=== PATIENT | female | born 1955 | race Caucasian/White ===

== ENCOUNTER 2016-05-07 17:58 | Emergency (ER) | payer OTHER ==
[2016-05-07] MEDS ORDERED: KETOROLAC 30 MG/ML VIAL (J1885) As Ordered ONE ×2 (18:45→19:15)
[2016-05-07] MEDS ORDERED: ONDANSETRON 4MG/2ML VIAL (J2405) As Ordered ONE ×2 (18:45→19:15)
[2016-05-07] MEDS ORDERED: LORazepam 2 MG/ML VIAL (J2060) As Ordered ONE (19:19)
[2016-05-07 19:20] LABS: BASO % 0.4 % (0.0-1.0); EOS # 0.5 K/mm3 (0.0-0.50); EOS % 5.5 % (0.0-3.0); LARGE UNSTAINED CELL # 0.1 K/mm3 (0.0-0.4); LARGE UNSTAINED CELL % 1.4 % (0.0-4.0); LYMPH # 2.4 K/mm3 (1.5-4.5); LYMPH % 25.3 % (24.0-44.0); MEAN CORPUSCULAR HEMOGLOBIN 30.2 pg (27.0-33.0); MEAN CORPUSCULAR HGB CONC 33.3 g/dl (32.0-36.5); MEAN CORPUSCULAR VOLUME 90.8 fl (80.0-96.0); MONO # 0.5 K/mm3 (0.0-0.8); NEUTROPHILS % 62.4 % (36.0-66.0); PLATELET COUNT, AUTOMATED 304 k/mm3 (150-450); WHITE BLOOD COUNT 9.6 K/mm3 (4.0-10.0)
[2016-05-07 19:56] LABS: ALBUMIN 3.9 GM/DL (3.2-5.2); ALKALINE PHOSPHATASE 115 U/L (45-117); ALT/SGPT 27 U/L (12-78); ANION GAP 11 MEQ/L (8-16); AST/SGOT 17 U/L (15-37); BILIRUBIN,DIRECT < 0.1 MG/DL (0.0-0.2); BILIRUBIN,TOTAL 0.3 MG/DL (0.2-1.0); BLOOD UREA NITROGEN 10 MG/DL (7-18); CALCIUM LEVEL 9.3 MG/DL (8.8-10.2); CARBON DIOXIDE LEVEL 24 MEQ/L (21-32); CHLORIDE LEVEL 105 MEQ/L (98-107); CREATININE FOR GFR 1.07 MG/DL (0.55-1.02); GLOMERULAR FILTRATION RATE 55.7 (>45); GLUCOSE, FASTING 116 MG/DL (80-110); POTASSIUM SERUM 4.3 MEQ/L (3.5-5.1); SODIUM LEVEL 140 MEQ/L (136-145); T UPTAKE 28 % (30-39); THYROXINE (T4) 5.7 UG/DL (4.5-12.0); TOTAL PROTEIN 7.8 GM/DL (6.4-8.2)
[2016-05-07] MEDS ORDERED: ISOVUE-370 76% 100ML VIAL (Q9967) As Ordered ONE (19:59)
--- NOTE | 2016-05-07 20:50 | REPUSA ---
CLINICAL HISTORY: Abdominal pain. TECHNIQUE: Multiple axial, sagittal and coronal CT images were obtained through the abdomen and pelvi s after administration of intravenous contrast material. COMMENTS: The liver is of uniform attenuation without mass or defect. There is no intra or extrahepatic biliary ductal dilatation. The spleen is normal. The gallbladder is within normal limits. The pancreas is of normal contour and attenuation characteristics. There is no evidence of adrenal mass. Both kidneys demonstrate prompt and equal nephrograms. The kidneys are normal in size, shape and conf iguration. There is no evidence of renal or ureteral mass. No renal or ureteral calculi are identifie d. There is no hydroureter or hydronephrosis. Small fat-containing umbilical hernia is seen. No evidence for appendicitis. Sigmoid diverticula are noted without evidence of diverticulitis. The re is no bowel wall thickening. No evidence for small or large bowel obstruction. There is no evidenc e of abdominal ascites or lymphadenopathy. Although bladder is not fully distended, there is apparent bladder wall thickening suggests cystitis . There is no evidence of intrinsic or extrinsic bladder mass. There is no pelvic ascites or lymphad enopathy. Images of the lung bases show no evidence of pleural or parenchymal mass. There are no pleural effusi ons. The bony structures are free of lytic or blastic lesions. Multilevel degenerative changes are seen in volving the thoracolumbar spine. Scattered calcifications are seen involving the aorta and major bran ches compatible with atherosclerosis. IMPRESSION: No evidence of acute abdominal pathology. Although bladder is not fully distended, there is apparent bladder wall thickening suggests cystitis . Small fat-containing umbilical hernia is seen. Sigmoid diverticula are noted without evidence of diverticulitis. Thank you for your kind referral of this patient.
--- NOTE | 2016-05-07 21:38 | EDDOCDS ---
Physician Documentation [facility] Name: Daylin Rahman Age: 61 yrs Sex: Female : 1955 Arrival Date: 05/07/2016 Time: 17:58 Bed I3 / M3 Private MD: Chon Borrero Disposition: 05/07/16 21:26 Discharged to Home/Self Care. Impression: Nausea and vomiting, Gastro-esophageal reflux disease. - Condition is Stable. - Discharge Instructions: Nausea and Vomiting. - Prescriptions for Carafate 1 gram Oral Tablet - take 1 tablet by ORAL route 4 times per day take on an empty stomach, beginning on waking and last dose at bedtime; 100 tablet. Compazine 10 mg Oral Tablet - take 1 tablet by ORAL route every 8 hours As needed; 20 tablet. - Medication Reconciliation, Local Pharmacy Hours form. - Follow up: Emergency Department; When: As needed; Reason: Worsening of conditions. Follow up: Dante Perez; When: Call to arrange an appointment; Reason: Wound/Symptom Recheck, Recheck today's complaints, Worsening of conditions, Continuance of care. - Problem is chronic. - Symptoms have improved. Historical: - Allergies: air born smellsseizure; SULFA (SULFONAMIDES)coma; Tegretolblisters; Depakoteblisters; Bees; - Home Meds: 1. pantoprazole 40 mg oral TbEC 1 tab 2 times per day 2. ondansetron HCl 4 mg Oral tab daily 3. Synthroid 88 mcg Oral tab 1 tab once daily 4. gabapentin 300 mg Oral cap 1 cap 3 times per day 5. Flexeril 10 mg Oral tab as needed - PMHx: Thyroid problem; - PSHx: Breast Reduction (2015); Hysterectomy (2005); neck plate (1998); left forearm; Cesearean Section (1978); - Social history: Smoking status: Patient states was never smoker of tobacco. No barriers to communication noted, The patient speaks fluent [place]serr[place]ian, Speaks appropriately for age. - Family history: Not pertinent. - : The pt / caregiver states he / she is not on anticoagulants. Home medication list is obtained from the patient. - Exposure Risk Screening:: None identified. Vital Signs: 05/07 17:59 BP 182 / 100; Pulse 83; Resp 20 S; Temp 97.0(O); Pulse Ox 96% on R/A; Weight 90.72 kg / gr2 200 lbs (R); Height 5 ft. 7 in. (170.18 cm) (R); Pain 4/10; 19:01 BP 151 / 90; Pulse 70; Resp 18; Temp 98.5; Pulse Ox 93% ; Pain 4/10; ajs 21:35 BP 149 / 72; Pulse 68; Resp 16; Temp 98.1; Pulse Ox 94% on R/A; Pain 1/10; ld5 17:59 Body Mass Index 31.32 (90.72 kg, 170.18 cm) gr2 MDM: 18:27 NS 0.9% 1000 ml IV at bolus once ordered. cc10 18:27 Ondansetron 4 mg IVP once ordered. cc10 18:27 ketorolac 30 mg IVP once ordered. cc10 18:27 IV Saline Lock ordered. cc10 18:27 Undress patient appropriately for examination ordered. cc10 18:27 LORazepam 0.5 mg IVP once ordered. cc10 18:28 Basic Metabolic Profile Ordered. EDMS 18:28 CBC with Diff Ordered. EDMS 18:28 Lipase Ordered. EDMS 18:28 Liver Profile Ordered. EDMS 18:28 Urinalysis Ordered. EDMS 18:28 Thyroid Profile Ordered. EDMS 18:28 Urine Culture Ordered. EDMS 18:29 CT ABD & PELVIS: IV Contrast Only Ordered. EDMS 18:29 NOTHING BY MOUTH+DIET ordered. EDMS 19:49 Financial registration complete. b 20:00 [facility] Payment Agreement was scanned into [employer] and attached to record. gjb 21:28 Basic Metabolic Profile Reviewed. cc10 21:28 CBC with Diff Reviewed. cc10 21:28 Thyroid Profile Reviewed. cc10 21:28 Lipase Reviewed. cc10 21:28 Liver Profile Reviewed. cc10 21:28 Urinalysis Reviewed. cc10 21:28 CT ABD & PELVIS: IV Contrast Only Reviewed. cc10 Administered Medications: 19:14 Drug: NS 0.9% 1000 ml [sodium chloride 0.9 % intravenous solution] Route: IV; Rate: ld5 bolus; Site: left antecubital; 20:19 Follow up: IV Status: Completed infusion; IV Intake: 1000ml ld5 19:30 Drug: Ondansetron 4 mg [ondansetron HCl 2 mg/mL intravenous solution (2 mL)] Route: ld5 IVP; Site: left antecubital; 20:19 Follow up: Response: Nausea is decreased ld5 19:30 Drug: LORazepam 0.5 mg [lorazepam 2 mg/mL injection solution (0.25 mL)] Route: IVP; ld5 Site: left antecubital; 19:31 Drug: ketorolac 30 mg [ketorolac 30 mg/mL (1 mL) injection solution (1 mL)] Route: IVP; ld5 Site: left antecubital; 20:19 Follow up: Response: Pain is decreased ld5 Signatures: Dispatcher [employer] EDMassiel De JesusRN RN kr3 Edie Herring RN RN ld5 Ricardo Bullock PA-C PA-C cc10 Joellen Vizcarra The chart was reviewed and I authenticate all verbal orders and agree with the evaluation and treatment provided.Attachments: 20:00 [facility] Payment Agreement zane MTDD
--- NOTE | 2016-05-07 21:38 | EDDOCDS ---
Nurse's Notes [facility] Name: Daylin Rahman Age: 61 yrs Sex: Female : 1955 Arrival Date: 05/07/2016 Time: 17:58 Bed I3 / M3 Private MD: Chon Borrero Diagnosis: Nausea and vomiting;Gastro-esophageal reflux disease Presentation: 05/07 18:01 Presenting complaint: Patient states: stomach problems for [address] madhavi Wang and has scope planned. Reports now having problem taking meds and thus having memory problems. Reports feeling rips in right side where she had breast reduction 10 weeks ago. Adult Sepsis Screening: The patient does not have new or worsening altered mentation. Patient's respiratory rate is less than 22. Systolic blood pressure is greater than 100. Patient has a qSOFA score of 0- Negative Sepsis Screen. Suicide/Homicide risk assessment- the patient denies having any suicidal and/or homicidal ideations and does not present with any other emotional, behavioral or mental health complaints. Status: Patient is not a services tech or dependent. Transition of care: patient was not received from another setting of care. 18:01 Acuity: CONSTANTINO Level 3 kr3 18:01 Method Of Arrival: Walkin/Carried/Asstd kr3 Triage Assessment: 18:07 General: Appears comfortable, distressed, Behavior is appropriate for age, cooperative. kr3 Pain: Location: right upper abdomen Pain currently is 3 out of 10 on a pain scale. At worst was 10 out of 10 on a pain scale. Aggravated by lifting or pulling or pushing. Pt Declines HIV testing. Neurological: No deficits noted. Respiratory: Respiratory effort is even, unlabored. GI: Reports afraid to eat or drink. Derm: Skin is normal. Historical: - Allergies: air born smellsseizure; SULFA (SULFONAMIDES)coma; Tegretolblisters; Depakoteblisters; Bees; - Home Meds: 1. pantoprazole 40 mg oral TbEC 1 tab 2 times per day 2. ondansetron HCl 4 mg Oral tab daily 3. Synthroid 88 mcg Oral tab 1 tab once daily 4. gabapentin 300 mg Oral cap 1 cap 3 times per day 5. Flexeril 10 mg Oral tab as needed - PMHx: Thyroid problem; - PSHx: Breast Reduction (2015); Hysterectomy (2006); neck plate (1998); left forearm; Cesearean Section (1978); - Social history: Smoking status: Patient states was never smoker of tobacco. No barriers to communication noted, The patient speaks fluent Peruvian, Speaks appropriately for age. - Family history: Not pertinent. - : The pt / caregiver states he / she is not on anticoagulants. Home medication list is obtained from the patient. - Exposure Risk Screening:: None identified. Screenin:35 Screening information is obtained from the patient. Fall risk: No risks identified. ld5 Assistance ADL's: requires no assistance with activities of daily living. Abuse/DV Screen: The patient / caregiver reports he/she is: not in a situation that causes fear, pain or injury. Nutritional screening: No deficits noted. Advance Directives: Currently, there is no health care proxy. home support is adequate. Assessment: 19:17 General: Appears in no apparent distress, Behavior is cooperative, tearful. Pain: ld5 Location: abdomen Pain currently is 4 out of 10 on a pain scale. At worst was 8 out of 10 on a pain scale. Quality of pain is described as sharp, Is intermittent Aggravated by repositioning, weight bearing. Neurological: Level of Consciousness is awake, alert, obeys commands. Respiratory: Airway is patent Respiratory effort is even, unlabored, Breath sounds are clear bilaterally. GI: Abdomen is obese, Bowel sounds present X 4 quads. Abd is soft X 4 quads Reports nausea, vomiting, intolerance of food, intolerance of fluids. : Denies burning with urination, pain with urination. Derm: surgical scarring and several scabbed areas under bilateral breasts, redness and warmth under breasts. 20:19 General: Pt returned from CT. Tolerated well. Reports pain is "90% better". [place] ld5 provided. Will continue to monitor. 21:16 General: Pt reports minimal pain and nausea. Resting comfortably in bed. Talking to ld5 granddaughter. Will continue to monitor. 21:35 General: Appears in no apparent distress, Behavior is cooperative, pleasant. Pain: Pain ld5 currently is 1 out of 10 on a pain scale. Neurological: Level of Consciousness is awake, obeys commands. Respiratory: Airway is patent Respiratory effort is even, unlabored. Vital Signs: 17:59 BP 182 / 100; Pulse 83; Resp 20 S; Temp 97.0(O); Pulse Ox 96% on R/A; Weight 90.72 kg gr2 (R); Height 5 ft. 7 in. (170.18 cm) (R); Pain 4/10; 19:01 BP 151 / 90; Pulse 70; Resp 18; Temp 98.5; Pulse Ox 93% ; Pain 4/10; ajs 21:35 BP 149 / 72; Pulse 68; Resp 16; Temp 98.1; Pulse Ox 94% on R/A; Pain 1/10; ld5 17:59 Body Mass Index 31.32 (90.72 kg, 170.18 cm) gr2 Vitals: 17:59 Log In Time: May 07, 2016 at 17:59. gr2 ED Course: 17:59 Patient visited by Carolina Gibbs. gr2 17:59 Chon Borrero MD is Private Physician. gr2 17:59 Patient moved to Waiting gr2 18:00 Patient visited by Carolina Gibbs. gr2 18:00 Patient moved to Pre RCE gr2 18:03 Triage Initiated kr3 18:09 Patient moved to Triage 1 kr3 18:19 Ricardo Bullock PA-C is PHCP. cc10 18:19 Lory Montemayor MD is Attending Physician. cc10 18:19 Patient visited by Ricardo Bullock PA-C. cc10 18:19 Patient visited by Ricardo Bullock PA-C. cc10 18:28 Isabel Palafox, GENIE is Primary Nurse. jam1 18:28 Patient moved to I3 / M3 jam1 19:01 Patient visited by Joelle Noel. ajs 19:13 Thyroid Profile Sent. ld5 19:13 Basic Metabolic Profile Sent. ld5 19:13 CBC with Diff Sent. ld5 19:13 Lipase Sent. ld5 19:13 Liver Profile Sent. ld5 19:13 Urinalysis Sent. ld5 19:13 Urine Culture Sent. ld5 19:47 The patient / caregiver is instructed regarding the plan of care and ED course. Patient ld5 has correct armband on for positive identification. Placed in gown. Bed in low position. Call light in reach. 19:47 Inserted saline lock: 20 gauge in left antecubital area and blood collected. The ld5 patient tolerated the procedure well. Labs drawn. (by ED staff). Sent per order to lab. Urine collected. Clean catch specimen. Urine specimen sent to lab. 19:48 Patient visited by Edie Herring RN. ld5 20:00 [facility] Payment Agreement was scanned into [place] and attached to record. gjb 20:22 Patient visited by Edie Herring RN. ld5 21:04 CT ABD & PELVIS: IV Contrast Only Returned. EDMS 21:26 Dante Perez is Referral Physician. cc10 21:35 Discontinued lock intact, bleeding controlled, pressure dressing applied, No ld5 redness/swelling at site. No procedures done that require assistance. 21:37 Patient visited by Edie Herring RN. ld5 Administered Medications: 19:14 Drug: NS 0.9% 1000 ml [sodium chloride 0.9 % intravenous solution] Route: IV; Rate: ld5 bolus; Site: left antecubital; 20:19 Follow up: IV Status: Completed infusion; IV Intake: 1000ml ld5 19:30 Drug: Ondansetron 4 mg [ondansetron HCl 2 mg/mL intravenous solution (2 mL)] Route: ld5 IVP; Site: left antecubital; 20:19 Follow up: Response: Nausea is decreased ld5 19:30 Drug: LORazepam 0.5 mg [lorazepam 2 mg/mL injection solution (0.25 mL)] Route: IVP; ld5 Site: left antecubital; 19:31 Drug: ketorolac 30 mg [ketorolac 30 mg/mL (1 mL) injection solution (1 mL)] Route: IVP; ld5 Site: left antecubital; 20:19 Follow up: Response: Pain is decreased ld5 Intake: 20:19 IV: 1000.00ml; Total: 1000.00ml. ld5 Order Results: Lab Order: Basic Metabolic Profile; SPEC'M 05/07/16 19:11 Test: GLUCOSE, FASTING; Value: 116; Range: 80-110; Abnormal: Above high normal; Units: MG/DL; Status: F Test: BLOOD UREA NITROGEN; Value: 10; Range: 7-18; Units: MG/DL; Status: F Test: CREATININE FOR GFR; Value: 1.07; Range: 0.55-1.02; Abnormal: Above high normal; Units: MG/DL; Status: F Test: GLOMERULAR FILTRATION RATE; Value: 55.7; Range: >45; Status: F Test: SODIUM LEVEL; Value: 140; Range: 136-145; Units: MEQ/L; Status: F Test: POTASSIUM SERUM; Value: 4.3; Range: 3.5-5.1; Units: MEQ/L; Status: F Test: CHLORIDE LEVEL; Value: 105; Range: 98-107; Units: MEQ/L; Status: F Test: CARBON DIOXIDE LEVEL; Value: 24; Range: 21-32; Units: MEQ/L; Status: F Test: ANION GAP; Value: 11; Range: 8-16; Units: MEQ/L; Status: F Test: CALCIUM LEVEL; Value: 9.3; Range: 8.8-10.2; Units: MG/DL; Status: F Test Note: ; Units are mL/min/1.73 m2 Chronic Kidney Disease Staging per NKF: Stage I & II GFR >=60 Normal to Mildly Decreased Stage III GFR 30-59 Moderately Decreased Stage IV GFR 15-29 Severely Decreased Stage V GFR <15 Very Little GFR Left ESRD GFR <15 on GREASE AND TALLOW PUMPER Lab Order: CBC with Diff; SPEC'M 05/07/16 19:11 Test: WHITE BLOOD COUNT; Value: 9.6; Range: 4.0-10.0; Units: K/mm3; Status: F Test: RED BLOOD COUNT; Value: 5.22; Range: 4.00-5.40; Units: M/mm3; Status: F Test: HEMOGLOBIN; Value: 15.8; Range: 12.0-16.0; Units: g/dl; Status: F Test: HEMATOCRIT; Value: 47.4; Range: 36.0-47.0; Abnormal: Above high normal; Units: %; Status: F Test: MEAN CORPUSCULAR VOLUME; Value: 90.8; Range: 80.0-96.0; Units: fl; Status: F Test: MEAN CORPUSCULAR HEMOGLOBIN; Value: 30.2; Range: 27.0-33.0; Units: pg; Status: F Test: MEAN CORPUSCULAR HGB CONC; Value: 33.3; Range: 32.0-36.5; Units: g/dl; Status: F Test: RED CELL DISTRIBUTION WIDTH; Value: 13.0; Range: 11.5-14.5; Units: %; Status: F Test: PLATELET COUNT, AUTOMATED; Value: 304; Range: 150-450; Units: k/mm3; Status: F Test: NEUTROPHILS %; Value: 62.4; Range: 36.0-66.0; Units: %; Status: F Test: LYMPH %; Value: 25.3; Range: 24.0-44.0; Units: %; Status: F Test: MONO %; Value: 5.0; Range: 0.0-5.0; Units: %; Status: F Test: EOS %; Value: 5.5; Range: 0.0-3.0; Abnormal: Above high normal; Units: %; Status: F Test: BASO %; Value: 0.4; Range: 0.0-1.0; Units: %; Status: F Test: LARGE UNSTAINED CELL %; Value: 1.4; Range: 0.0-4.0; Units: %; Status: F Test: NEUTROPHILS #; Value: 6.0; Range: 1.8-7.7; Units: K/mm3; Status: F Test: LYMPH #; Value: 2.4; Range: 1.5-4.5; Units: K/mm3; Status: F Test: MONO #; Value: 0.5; Range: 0.0-0.8; Units: K/mm3; Status: F Test: EOS #; Value: 0.5; Range: 0.0-0.50; Units: K/mm3; Status: F Test: BASO #; Value: 0.0; Range: 0.0-0.2; Units: K/mm3; Status: F Test: LARGE UNSTAINED CELL #; Value: 0.1; Range: 0.0-0.4; Units: K/mm3; Status: F Lab Order: Lipase; SPEC'M 05/07/16 19:11 Test: LIPASE; Value: 118; Range: 73-393; Units: U/L; Status: F Lab Order: Liver Profile; SPEC'M 05/07/16 19:11 Test: AST/SGOT; Value: 17; Range: 15-37; Units: U/L; Status: F Test: ALT/SGPT; Value: 27; Range: 12-78; Units: U/L; Status: F Test: ALKALINE PHOSPHATASE; Value: 115; Range: 45-117; Units: U/L; Status: F Test: BILIRUBIN,TOTAL; Value: 0.3; Range: 0.2-1.0; Units: MG/DL; Status: F Test: BILIRUBIN,DIRECT; Value: < 0.1; Range: 0.0-0.2; Units: MG/DL; Status: F Test: TOTAL PROTEIN; Value: 7.8; Range: 6.4-8.2; Units: GM/DL; Status: F Test: ALBUMIN; Value: 3.9; Range: 3.2-5.2; Units: GM/DL; Status: F Test: ALBUMIN/GLOBULIN RATIO; Value: 1.00; Range: 1.00-1.93; Status: F Lab Order: Urinalysis; SPEC'M 05/07/16 19:11 Test: APPEARANCE, URINE; Value: HAZY; Range: CLEAR; Status: F Test: COLOR, URINE; Value: YELLOW; Range: YELLOW; Status: F Test: PH,URINE; Value: 5.0; Range: 5.0-9.0; Units: UNITS; Status: F Test: SPECIFIC GRAVITY URINE AUTO; Value: 1.018; Range: 1.002-1.035; Status: F Test: PROTEIN, URINE AUTO; Value: NEGATIVE; Range: NEGATIVE; Units: mg/dL; Status: F Test: GLUCOSE, URINE (UA) AUTO; Value: NEGATIVE; Range: NEGATIVE; Units: mg/dL; Status: F Test: KETONE, URINE AUTO; Value: NEGATIVE; Range: NEGATIVE; Units: mg/dL; Status: F Test: UROBILINOGEN, URINE AUTO; Value: 0.2; Range: 0.0-2.0; Units: mg/dL; Status: F Test: BILIRUBIN, URINE AUTO; Value: NEGATIVE; Range: NEGATIVE; Status: F Test: NITRITE, URINE AUTO; Value: NEGATIVE; Range: NEGATIVE; Status: F Test: LEUKOCYTE ESTERASE, URINE AUTO; Value: NEGATIVE; Range: NEGATIVE; Status: F Test: BLOOD, URINE BLOOD; Value: NEGATIVE; Range: NEGATIVE; Status: F Test: WBC, URINE AUTO; Value: 1; Range: 0-3; Units: /HPF; Status: F Test: RBC, URINE AUTO; Value: 1; Range: 0-3; Units: /HPF; Status: F Test: BACTERIA, URINE AUTO; Value: NEGATIVE; Range: NEGATIVE; Status: F Test: SQUAMOUS EPITHELIAL CELL UR AU; Value: 3; Range: 0-6; Units: /HPF; Status: F Test: MUCUS, URINE; Value: SMALL; Range: NEGATIVE; Status: F Test: HYALINE CAST, URINE AUTO; Value: 1; Range: 0-1; Units: /LPF; Status: F Lab Order: Thyroid Profile; SPEC'M 05/07/16 19:11 Test: T UPTAKE; Value: 28; Range: 30-39; Abnormal: Below low normal; Units: %; Status: F Test: THYROXINE (T4); Value: 5.7; Range: 4.5-12.0; Units: UG/DL; Status: F Test: FREE THYROXINE INDEX; Value: 1.6; Range: 1.3-4.8; Units: %; Status: F Test: THYROID STIMULATING HORMONE; Value: 55.900; Range: 0.358-3.740; Abnormal: Above high normal; Units: uIU/ML; Status: F Radiology Order: CT ABD & PELVIS: IV Contrast Only Test: CT ABD & PELVIS: IV Contrast Only REASON FOR EXAMINATION: Abdomen Pain; ; CLINICAL HISTORY: Abdominal pain.; TECHNIQUE: Multiple axial, sagittal and coronal CT images were obtained through the abdomen and pelvi; s after administration of intravenous contrast material.; COMMENTS:; The liver is of uniform attenuation without mass or defect. There is no intra or extrahepatic biliary; ductal dilatation. The spleen is normal. The gallbladder is within normal limits. The pancreas is of; normal contour and attenuation characteristics. There is no evidence of adrenal mass.; Both kidneys demonstrate prompt and equal nephrograms. The kidneys are normal in size, shape and conf; iguration. There is no evidence of renal or ureteral mass. No renal or ureteral calculi are identifie; d. There is no hydroureter or hydronephrosis.; Small fat-containing umbilical hernia is seen.; No evidence for appendicitis. Sigmoid diverticula are noted without evidence of diverticulitis. The; re is no bowel wall thickening. No evidence for small or large bowel obstruction. There is no evidenc; e of abdominal ascites or lymphadenopathy.; Although bladder is not fully distended, there is apparent bladder wall thickening suggests cystitis; . There is no evidence of intrinsic or extrinsic bladder mass. There is no pelvic ascites or lymphad; enopathy.; Images of the lung bases show no evidence of pleural or parenchymal mass. There are no pleural effusi; ons.; The bony structures are free of lytic or blastic lesions. Multilevel degenerative changes are seen in; volving the thoracolumbar spine. Scattered calcifications are seen involving the aorta and major bran; ches compatible with atherosclerosis.; IMPRESSION:; No evidence of acute abdominal pathology.; Although bladder is not fully distended, there is apparent bladder wall thickening suggests cystitis; .; Small fat-containing umbilical hernia is seen.; Sigmoid diverticula are noted without evidence of diverticulitis.; Thank you for your kind referral of this patient.; ; Outcome: 21:26 Discharge ordered by Provider. cc10 21:35 Discharge Assessment: Patient awake, alert and oriented x 3. No cognitive and/or ld5 functional deficits noted. Patient verbalized understanding of disposition instructions. patient administered narcotics - no. The following High Risk Discharge criteria are identified: None. Discharged to home ambulatory, with family. Condition: stable. Discharge instructions given to patient, Instructed on discharge instructions, follow up and referral plans. medication usage, Demonstrated understanding of instructions, medications, Pt was receptive of discharge instructions/ teaching. Prescriptions given X 2. CT Study completed. Property :Personal belongings accompany Pt. 21:37 Patient left the ED. ld5 Signatures: Dispatcher [employer] EDMS Amira Velasco, WORKERS' COMPENSATION CLAIMS EXAMINER WORKERS' COMPENSATION CLAIMS EXAMINER jam1 Massiel Mendoza,RN RN kr3 Edie Herring,RN RN ld5 Joelle Noel [place] gr2 Ricardo Bullock PAShannan PAMoodyC cc10 Joellen Vizcarra MTDD
--- NOTE | 2016-05-09 22:38 | EDDOCDS ---
Nurse's Notes [facility] Name: Daylin Rahman Age: 61 yrs Sex: Female : 1955 Arrival Date: 05/07/2016 Time: 17:58 Bed I3 / M3 Private MD: Chon Borrero Diagnosis: Nausea and vomiting;Gastro-esophageal reflux disease Presentation: 05/07 18:01 Presenting complaint: Patient states: stomach problems for [address] madhavi Wang and has scope planned. Reports now having problem taking meds and thus having memory problems. Reports feeling rips in right side where she had breast reduction 10 weeks ago. Adult Sepsis Screening: The patient does not have new or worsening altered mentation. Patient's respiratory rate is less than 22. Systolic blood pressure is greater than 100. Patient has a qSOFA score of 0- Negative Sepsis Screen. Suicide/Homicide risk assessment- the patient denies having any suicidal and/or homicidal ideations and does not present with any other emotional, behavioral or mental health complaints. Status: Patient is not a director of rehabilitative services or dependent. Transition of care: patient was not received from another setting of care. 18:01 Acuity: CONSTANTINO Level 3 kr3 18:01 Method Of Arrival: Walkin/Carried/Asstd kr3 Triage Assessment: 18:07 General: Appears comfortable, distressed, Behavior is appropriate for age, cooperative. kr3 Pain: Location: right upper abdomen Pain currently is 3 out of 10 on a pain scale. At worst was 10 out of 10 on a pain scale. Aggravated by lifting or pulling or pushing. Pt Declines HIV testing. Neurological: No deficits noted. Respiratory: Respiratory effort is even, unlabored. GI: Reports afraid to eat or drink. Derm: Skin is normal. Historical: - Allergies: air born smellsseizure; SULFA (SULFONAMIDES)coma; Tegretolblisters; Depakoteblisters; Bees; - Home Meds: 1. pantoprazole 40 mg oral TbEC 1 tab 2 times per day 2. ondansetron HCl 4 mg Oral tab daily 3. Synthroid 88 mcg Oral tab 1 tab once daily 4. gabapentin 300 mg Oral cap 1 cap 3 times per day 5. Flexeril 10 mg Oral tab as needed - PMHx: Thyroid problem; - PSHx: Breast Reduction (2015); Hysterectomy (2006); neck plate (1998); left forearm; Cesearean Section (1978); - Social history: Smoking status: Patient states was never smoker of tobacco. No barriers to communication noted, The patient speaks fluent Bruneian, Speaks appropriately for age. - Family history: Not pertinent. - : The pt / caregiver states he / she is not on anticoagulants. Home medication list is obtained from the patient. - Exposure Risk Screening:: None identified. Screenin:35 Screening information is obtained from the patient. Fall risk: No risks identified. ld5 Assistance ADL's: requires no assistance with activities of daily living. Abuse/DV Screen: The patient / caregiver reports he/she is: not in a situation that causes fear, pain or injury. Nutritional screening: No deficits noted. Advance Directives: Currently, there is no health care proxy. home support is adequate. Assessment: 19:17 General: Appears in no apparent distress, Behavior is cooperative, tearful. Pain: ld5 Location: abdomen Pain currently is 4 out of 10 on a pain scale. At worst was 8 out of 10 on a pain scale. Quality of pain is described as sharp, Is intermittent Aggravated by repositioning, weight bearing. Neurological: Level of Consciousness is awake, alert, obeys commands. Respiratory: Airway is patent Respiratory effort is even, unlabored, Breath sounds are clear bilaterally. GI: Abdomen is obese, Bowel sounds present X 4 quads. Abd is soft X 4 quads Reports nausea, vomiting, intolerance of food, intolerance of fluids. : Denies burning with urination, pain with urination. Derm: surgical scarring and several scabbed areas under bilateral breasts, redness and warmth under breasts. 20:19 General: Pt returned from CT. Tolerated well. Reports pain is "90% better". [place] ld5 provided. Will continue to monitor. 21:16 General: Pt reports minimal pain and nausea. Resting comfortably in bed. Talking to ld5 granddaughter. Will continue to monitor. 21:35 General: Appears in no apparent distress, Behavior is cooperative, pleasant. Pain: Pain ld5 currently is 1 out of 10 on a pain scale. Neurological: Level of Consciousness is awake, obeys commands. Respiratory: Airway is patent Respiratory effort is even, unlabored. Vital Signs: 17:59 BP 182 / 100; Pulse 83; Resp 20 S; Temp 97.0(O); Pulse Ox 96% on R/A; Weight 90.72 kg gr2 (R); Height 5 ft. 7 in. (170.18 cm) (R); Pain 4/10; 19:01 BP 151 / 90; Pulse 70; Resp 18; Temp 98.5; Pulse Ox 93% ; Pain 4/10; ajs 21:35 BP 149 / 72; Pulse 68; Resp 16; Temp 98.1; Pulse Ox 94% on R/A; Pain 1/10; ld5 17:59 Body Mass Index 31.32 (90.72 kg, 170.18 cm) gr2 Vitals: 17:59 Log In Time: May 07, 2016 at 17:59. gr2 ED Course: 17:59 Patient visited by Carolina Gibbs. gr2 17:59 Chon Borrero MD is Private Physician. gr2 17:59 Patient moved to Waiting gr2 18:00 Patient visited by Carolina Gibbs. gr2 18:00 Patient moved to Pre RCE gr2 18:03 Triage Initiated kr3 18:09 Patient moved to Triage 1 kr3 18:19 Ricardo Bullock PA-C is PHCP. cc10 18:19 Lory Montemayor MD is Attending Physician. cc10 18:19 Patient visited by Ricardo Bullock PA-C. cc10 18:19 Patient visited by Ricardo Bullock PA-C. cc10 18:28 Isabel Palafox, GENIE is Primary Nurse. jam1 18:28 Patient moved to I3 / M3 jam1 19:01 Patient visited by Joelle Noel. ajs 19:13 Thyroid Profile Sent. ld5 19:13 Basic Metabolic Profile Sent. ld5 19:13 CBC with Diff Sent. ld5 19:13 Lipase Sent. ld5 19:13 Liver Profile Sent. ld5 19:13 Urinalysis Sent. ld5 19:13 Urine Culture Sent. ld5 19:47 The patient / caregiver is instructed regarding the plan of care and ED course. Patient ld5 has correct armband on for positive identification. Placed in gown. Bed in low position. Call light in reach. 19:47 Inserted saline lock: 20 gauge in left antecubital area and blood collected. The ld5 patient tolerated the procedure well. Labs drawn. (by ED staff). Sent per order to lab. Urine collected. Clean catch specimen. Urine specimen sent to lab. 19:48 Patient visited by Edie Herring RN. ld5 20:00 [facility] Payment Agreement was scanned into [employer] and attached to record. gjb 20:22 Patient visited by Edie Herring RN. ld5 21:04 CT ABD & PELVIS: IV Contrast Only Returned. EDMS 21:26 Dante Perez is Referral Physician. cc10 21:35 Discontinued lock intact, bleeding controlled, pressure dressing applied, No ld5 redness/swelling at site. No procedures done that require assistance. 21:37 Patient visited by Edie Herring RN. ld5 05/08 11:43 T-Sheet-- Draft Copy was scanned into [employer] and attached to record. gb Administered Medications: 05/07 19:14 Drug: NS 0.9% 1000 ml [sodium chloride 0.9 % intravenous solution] Route: IV; Rate: ld5 bolus; Site: left antecubital; 20:19 Follow up: IV Status: Completed infusion; IV Intake: 1000ml ld5 19:30 Drug: Ondansetron 4 mg [ondansetron HCl 2 mg/mL intravenous solution (2 mL)] Route: ld5 IVP; Site: left antecubital; 20:19 Follow up: Response: Nausea is decreased ld5 19:30 Drug: LORazepam 0.5 mg [lorazepam 2 mg/mL injection solution (0.25 mL)] Route: IVP; ld5 Site: left antecubital; 19:31 Drug: ketorolac 30 mg [ketorolac 30 mg/mL (1 mL) injection solution (1 mL)] Route: IVP; ld5 Site: left antecubital; 20:19 Follow up: Response: Pain is decreased ld5 Intake: 20:19 IV: 1000.00ml; Total: 1000.00ml. ld5 Order Results: Lab Order: Basic Metabolic Profile; SPEC'M 05/07/16 19:11 Test: GLUCOSE, FASTING; Value: 116; Range: 80-110; Abnormal: Above high normal; Units: MG/DL; Status: F Test: BLOOD UREA NITROGEN; Value: 10; Range: 7-18; Units: MG/DL; Status: F Test: CREATININE FOR GFR; Value: 1.07; Range: 0.55-1.02; Abnormal: Above high normal; Units: MG/DL; Status: F Test: GLOMERULAR FILTRATION RATE; Value: 55.7; Range: >45; Status: F Test: SODIUM LEVEL; Value: 140; Range: 136-145; Units: MEQ/L; Status: F Test: POTASSIUM SERUM; Value: 4.3; Range: 3.5-5.1; Units: MEQ/L; Status: F Test: CHLORIDE LEVEL; Value: 105; Range: 98-107; Units: MEQ/L; Status: F Test: CARBON DIOXIDE LEVEL; Value: 24; Range: 21-32; Units: MEQ/L; Status: F Test: ANION GAP; Value: 11; Range: 8-16; Units: MEQ/L; Status: F Test: CALCIUM LEVEL; Value: 9.3; Range: 8.8-10.2; Units: MG/DL; Status: F Test Note: ; Units are mL/min/1.73 m2 Chronic Kidney Disease Staging per NKF: Stage I & II GFR >=60 Normal to Mildly Decreased Stage III GFR 30-59 Moderately Decreased Stage IV GFR 15-29 Severely Decreased Stage V GFR <15 Very Little GFR Left ESRD GFR <15 on POLYMER TESTER Lab Order: CBC with Diff; SPEC'M 05/07/16 19:11 Test: WHITE BLOOD COUNT; Value: 9.6; Range: 4.0-10.0; Units: K/mm3; Status: F Test: RED BLOOD COUNT; Value: 5.22; Range: 4.00-5.40; Units: M/mm3; Status: F Test: HEMOGLOBIN; Value: 15.8; Range: 12.0-16.0; Units: g/dl; Status: F Test: HEMATOCRIT; Value: 47.4; Range: 36.0-47.0; Abnormal: Above high normal; Units: %; Status: F Test: MEAN CORPUSCULAR VOLUME; Value: 90.8; Range: 80.0-96.0; Units: fl; Status: F Test: MEAN CORPUSCULAR HEMOGLOBIN; Value: 30.2; Range: 27.0-33.0; Units: pg; Status: F Test: MEAN CORPUSCULAR HGB CONC; Value: 33.3; Range: 32.0-36.5; Units: g/dl; Status: F Test: RED CELL DISTRIBUTION WIDTH; Value: 13.0; Range: 11.5-14.5; Units: %; Status: F Test: PLATELET COUNT, AUTOMATED; Value: 304; Range: 150-450; Units: k/mm3; Status: F Test: NEUTROPHILS %; Value: 62.4; Range: 36.0-66.0; Units: %; Status: F Test: LYMPH %; Value: 25.3; Range: 24.0-44.0; Units: %; Status: F Test: MONO %; Value: 5.0; Range: 0.0-5.0; Units: %; Status: F Test: EOS %; Value: 5.5; Range: 0.0-3.0; Abnormal: Above high normal; Units: %; Status: F Test: BASO %; Value: 0.4; Range: 0.0-1.0; Units: %; Status: F Test: LARGE UNSTAINED CELL %; Value: 1.4; Range: 0.0-4.0; Units: %; Status: F Test: NEUTROPHILS #; Value: 6.0; Range: 1.8-7.7; Units: K/mm3; Status: F Test: LYMPH #; Value: 2.4; Range: 1.5-4.5; Units: K/mm3; Status: F Test: MONO #; Value: 0.5; Range: 0.0-0.8; Units: K/mm3; Status: F Test: EOS #; Value: 0.5; Range: 0.0-0.50; Units: K/mm3; Status: F Test: BASO #; Value: 0.0; Range: 0.0-0.2; Units: K/mm3; Status: F Test: LARGE UNSTAINED CELL #; Value: 0.1; Range: 0.0-0.4; Units: K/mm3; Status: F Lab Order: Lipase; SPEC' 05/07/16 19:11 Test: LIPASE; Value: 118; Range: 73-393; Units: U/L; Status: F Lab Order: Liver Profile; SPEC' 05/07/16 19:11 Test: AST/SGOT; Value: 17; Range: 15-37; Units: U/L; Status: F Test: ALT/SGPT; Value: 27; Range: 12-78; Units: U/L; Status: F Test: ALKALINE PHOSPHATASE; Value: 115; Range: 45-117; Units: U/L; Status: F Test: BILIRUBIN,TOTAL; Value: 0.3; Range: 0.2-1.0; Units: MG/DL; Status: F Test: BILIRUBIN,DIRECT; Value: < 0.1; Range: 0.0-0.2; Units: MG/DL; Status: F Test: TOTAL PROTEIN; Value: 7.8; Range: 6.4-8.2; Units: GM/DL; Status: F Test: ALBUMIN; Value: 3.9; Range: 3.2-5.2; Units: GM/DL; Status: F Test: ALBUMIN/GLOBULIN RATIO; Value: 1.00; Range: 1.00-1.93; Status: F Lab Order: Urinalysis; SPEC'M 05/07/16 19:11 Test: APPEARANCE, URINE; Value: HAZY; Range: CLEAR; Status: F Test: COLOR, URINE; Value: YELLOW; Range: YELLOW; Status: F Test: PH,URINE; Value: 5.0; Range: 5.0-9.0; Units: UNITS; Status: F Test: SPECIFIC GRAVITY URINE AUTO; Value: 1.018; Range: 1.002-1.035; Status: F Test: PROTEIN, URINE AUTO; Value: NEGATIVE; Range: NEGATIVE; Units: mg/dL; Status: F Test: GLUCOSE, URINE (UA) AUTO; Value: NEGATIVE; Range: NEGATIVE; Units: mg/dL; Status: F Test: KETONE, URINE AUTO; Value: NEGATIVE; Range: NEGATIVE; Units: mg/dL; Status: F Test: UROBILINOGEN, URINE AUTO; Value: 0.2; Range: 0.0-2.0; Units: mg/dL; Status: F Test: BILIRUBIN, URINE AUTO; Value: NEGATIVE; Range: NEGATIVE; Status: F Test: NITRITE, URINE AUTO; Value: NEGATIVE; Range: NEGATIVE; Status: F Test: LEUKOCYTE ESTERASE, URINE AUTO; Value: NEGATIVE; Range: NEGATIVE; Status: F Test: BLOOD, URINE BLOOD; Value: NEGATIVE; Range: NEGATIVE; Status: F Test: WBC, URINE AUTO; Value: 1; Range: 0-3; Units: /HPF; Status: F Test: RBC, URINE AUTO; Value: 1; Range: 0-3; Units: /HPF; Status: F Test: BACTERIA, URINE AUTO; Value: NEGATIVE; Range: NEGATIVE; Status: F Test: SQUAMOUS EPITHELIAL CELL UR AU; Value: 3; Range: 0-6; Units: /HPF; Status: F Test: MUCUS, URINE; Value: SMALL; Range: NEGATIVE; Status: F Test: HYALINE CAST, URINE AUTO; Value: 1; Range: 0-1; Units: /LPF; Status: F Lab Order: Urine Culture; SPEC'M 05/07/16 19:11 Test: URINE CULTURE; Value: URINE CULTURE RESULT NO GROWTH; Status: F Lab Order: Thyroid Profile; SPEC'M 05/07/16 19:11 Test: T UPTAKE; Value: 28; Range: 30-39; Abnormal: Below low normal; Units: %; Status: F Test: THYROXINE (T4); Value: 5.7; Range: 4.5-12.0; Units: UG/DL; Status: F Test: FREE THYROXINE INDEX; Value: 1.6; Range: 1.3-4.8; Units: %; Status: F Test: THYROID STIMULATING HORMONE; Value: 55.900; Range: 0.358-3.740; Abnormal: Above high normal; Units: uIU/ML; Status: F Radiology Order: CT ABD & PELVIS: IV Contrast Only Test: CT ABD & PELVIS: IV Contrast Only REASON FOR EXAMINATION: Abdomen Pain; ; CLINICAL HISTORY: Abdominal pain.; TECHNIQUE: Multiple axial, sagittal and coronal CT images were obtained through the abdomen and pelvi; s after administration of intravenous contrast material.; COMMENTS:; The liver is of uniform attenuation without mass or defect. There is no intra or extrahepatic biliary; ductal dilatation. The spleen is normal. The gallbladder is within normal limits. The pancreas is of; normal contour and attenuation characteristics. There is no evidence of adrenal mass.; Both kidneys demonstrate prompt and equal nephrograms. The kidneys are normal in size, shape and conf; iguration. There is no evidence of renal or ureteral mass. No renal or ureteral calculi are identifie; d. There is no hydroureter or hydronephrosis.; Small fat-containing umbilical hernia is seen.; No evidence for appendicitis. Sigmoid diverticula are noted without evidence of diverticulitis. The; re is no bowel wall thickening. No evidence for small or large bowel obstruction. There is no evidenc; e of abdominal ascites or lymphadenopathy.; Although bladder is not fully distended, there is apparent bladder wall thickening suggests cystitis; . There is no evidence of intrinsic or extrinsic bladder mass. There is no pelvic ascites or lymphad; enopathy.; Images of the lung bases show no evidence of pleural or parenchymal mass. There are no pleural effusi; ons.; The bony structures are free of lytic or blastic lesions. Multilevel degenerative changes are seen in; volving the thoracolumbar spine. Scattered calcifications are seen involving the aorta and major bran; ches compatible with atherosclerosis.; IMPRESSION:; No evidence of acute abdominal pathology.; Although bladder is not fully distended, there is apparent bladder wall thickening suggests cystitis; .; Small fat-containing umbilical hernia is seen.; Sigmoid diverticula are noted without evidence of diverticulitis.; Thank you for your kind referral of this patient.; ; Outcome: 21:26 Discharge ordered by Provider. cc10 21:35 Discharge Assessment: Patient awake, alert and oriented x 3. No cognitive and/or ld5 functional deficits noted. Patient verbalized understanding of disposition instructions. patient administered narcotics - no. The following High Risk Discharge criteria are identified: None. Discharged to home ambulatory, with family. Condition: stable. Discharge instructions given to patient, Instructed on discharge instructions, follow up and referral plans. medication usage, Demonstrated understanding of instructions, medications, Pt was receptive of discharge instructions/ teaching. Prescriptions given X 2. CT Study completed. Property :Personal belongings accompany Pt. 21:37 Patient left the ED. ld5 Signatures: Dispatcher [employer] EDMS Amira Velasco, [employer] SUPERVISOR [employer] SUPERVISOR jam1 Charlene Mcnulty, Reg Reg gb Massiel Mendoza,RN RN kr3 Edie Herring RN RN ld5 Joelle Noel Gainslee gr2 Ricardo Bullock, PA-C PA-C cc10 Vizcarra, Joellen gjb Chart Complete MTDD
--- NOTE | 2016-05-09 22:38 | EDDOCDS ---
Physician Documentation [facility] Name: Daylin Rahman Age: 61 yrs Sex: Female : 1955 Arrival Date: 05/07/2016 Time: 17:58 Bed I3 / M3 Private MD: Chon Borrero Disposition: 05/07/16 21:26 Discharged to Home/Self Care. Impression: Nausea and vomiting, Gastro-esophageal reflux disease. - Condition is Stable. - Discharge Instructions: Nausea and Vomiting. - Prescriptions for Carafate 1 gram Oral Tablet - take 1 tablet by ORAL route 4 times per day take on an empty stomach, beginning on waking and last dose at bedtime; 100 tablet. Compazine 10 mg Oral Tablet - take 1 tablet by ORAL route every 8 hours As needed; 20 tablet. - Medication Reconciliation, Local Pharmacy Hours form. - Follow up: Emergency Department; When: As needed; Reason: Worsening of conditions. Follow up: Dante Perez; When: Call to arrange an appointment; Reason: Wound/Symptom Recheck, Recheck today's complaints, Worsening of conditions, Continuance of care. - Problem is chronic. - Symptoms have improved. Historical: - Allergies: air born smellsseizure; SULFA (SULFONAMIDES)coma; Tegretolblisters; Depakoteblisters; Bees; - Home Meds: 1. pantoprazole 40 mg oral TbEC 1 tab 2 times per day 2. ondansetron HCl 4 mg Oral tab daily 3. Synthroid 88 mcg Oral tab 1 tab once daily 4. gabapentin 300 mg Oral cap 1 cap 3 times per day 5. Flexeril 10 mg Oral tab as needed - PMHx: Thyroid problem; - PSHx: Breast Reduction (2015); Hysterectomy (2005); neck plate (1998); left forearm; Cesearean Section (1978); - Social history: Smoking status: Patient states was never smoker of tobacco. No barriers to communication noted, The patient speaks fluent Estonian, Speaks appropriately for age. - Family history: Not pertinent. - : The pt / caregiver states he / she is not on anticoagulants. Home medication list is obtained from the patient. - Exposure Risk Screening:: None identified. Vital Signs: 05/07 17:59 BP 182 / 100; Pulse 83; Resp 20 S; Temp 97.0(O); Pulse Ox 96% on R/A; Weight 90.72 kg / gr2 200 lbs (R); Height 5 ft. 7 in. (170.18 cm) (R); Pain 4/10; 19:01 BP 151 / 90; Pulse 70; Resp 18; Temp 98.5; Pulse Ox 93% ; Pain 4/10; ajs 21:35 BP 149 / 72; Pulse 68; Resp 16; Temp 98.1; Pulse Ox 94% on R/A; Pain 1/10; ld5 17:59 Body Mass Index 31.32 (90.72 kg, 170.18 cm) gr2 MDM: 18:27 NS 0.9% 1000 ml IV at bolus once ordered. cc10 18:27 Ondansetron 4 mg IVP once ordered. cc10 18:27 ketorolac 30 mg IVP once ordered. cc10 18:27 IV Saline Lock ordered. cc10 18:27 Undress patient appropriately for examination ordered. cc10 18:27 LORazepam 0.5 mg IVP once ordered. cc10 18:28 Basic Metabolic Profile Ordered. EDMS 18:28 CBC with Diff Ordered. EDMS 18:28 Lipase Ordered. EDMS 18:28 Liver Profile Ordered. EDMS 18:28 Urinalysis Ordered. EDMS 18:28 Thyroid Profile Ordered. EDMS 18:28 Urine Culture Ordered. EDMS 18:29 CT ABD & PELVIS: IV Contrast Only Ordered. EDMS 18:29 NOTHING BY MOUTH+DIET ordered. EDMS 19:49 Financial registration complete. gjb 20:00 [facility] Payment Agreement was scanned into [employer] and attached to record. gjb 21:28 Basic Metabolic Profile Reviewed. cc10 21:28 CBC with Diff Reviewed. cc10 21:28 Thyroid Profile Reviewed. cc10 21:28 Lipase Reviewed. cc10 21:28 Liver Profile Reviewed. cc10 21:28 Urinalysis Reviewed. cc10 21:28 CT ABD & PELVIS: IV Contrast Only Reviewed. cc10 05/08 11:43 T-Sheet-- Draft Copy was scanned into [employer] and attached to record. gb Administered Medications: 05/07 19:14 Drug: NS 0.9% 1000 ml [sodium chloride 0.9 % intravenous solution] Route: IV; Rate: ld5 bolus; Site: left antecubital; 20:19 Follow up: IV Status: Completed infusion; IV Intake: 1000ml ld5 19:30 Drug: Ondansetron 4 mg [ondansetron HCl 2 mg/mL intravenous solution (2 mL)] Route: ld5 IVP; Site: left antecubital; 20:19 Follow up: Response: Nausea is decreased ld5 19:30 Drug: LORazepam 0.5 mg [lorazepam 2 mg/mL injection solution (0.25 mL)] Route: IVP; ld5 Site: left antecubital; 19:31 Drug: ketorolac 30 mg [ketorolac 30 mg/mL (1 mL) injection solution (1 mL)] Route: IVP; ld5 Site: left antecubital; 20:19 Follow up: Response: Pain is decreased ld5 Signatures: Dispatcher [employer] EDMS Charlene Mcnulty, Reg Massiel Clemons,RN RN kr3 Edie Herring RN RN ld5 Ricardo Bullock PA-C PAShannan cc10 Joellen Vizcarra The chart was reviewed and I authenticate all verbal orders and agree with the evaluation and treatment provided.Attachments: 20:00 [facility] Payment Agreement gjb 05/08 11:43 T-Sheet-- Draft Copy gb Chart Complete MTDD
--- NOTE | 2016-05-09 22:38 | EDDOCDS ---
Physician Documentation [facility], [place] Name: Daylin Rahman Age: 61 yrs Sex: Female : 1955 Arrival Date: 05/07/2016 Time: 17:58 Bed I3 / M3 Private MD: Chon Borrero Disposition: 05/07/16 21:26 Discharged to Home/Self Care. Impression: Nausea and vomiting, Gastro-esophageal reflux disease. - Condition is Stable. - Discharge Instructions: Nausea and Vomiting. - Prescriptions for Carafate 1 gram Oral Tablet - take 1 tablet by ORAL route 4 times per day take on an empty stomach, beginning on waking and last dose at bedtime; 100 tablet. Compazine 10 mg Oral Tablet - take 1 tablet by ORAL route every 8 hours As needed; 20 tablet. - Medication Reconciliation, Local Pharmacy Hours form. - Follow up: Emergency Department; When: As needed; Reason: Worsening of conditions. Follow up: Dante Perez; When: Call to arrange an appointment; Reason: Wound/Symptom Recheck, Recheck today's complaints, Worsening of conditions, Continuance of care. - Problem is chronic. - Symptoms have improved. Historical: - Allergies: air born smellsseizure; SULFA (SULFONAMIDES)coma; Tegretolblisters; Depakoteblisters; Bees; - Home Meds: 1. pantoprazole 40 mg oral TbEC 1 tab 2 times per day 2. ondansetron HCl 4 mg Oral tab daily 3. Synthroid 88 mcg Oral tab 1 tab once daily 4. gabapentin 300 mg Oral cap 1 cap 3 times per day 5. Flexeril 10 mg Oral tab as needed - PMHx: Thyroid problem; - PSHx: Breast Reduction (2015); Hysterectomy (2005); neck plate (1998); left forearm; Cesearean Section (1978); - Social history: Smoking status: Patient states was never smoker of tobacco. No barriers to communication noted, The patient speaks fluent Turkish, Speaks appropriately for age. - Family history: Not pertinent. - : The pt / caregiver states he / she is not on anticoagulants. Home medication list is obtained from the patient. - Exposure Risk Screening:: None identified. Vital Signs: 05/07 17:59 BP 182 / 100; Pulse 83; Resp 20 S; Temp 97.0(O); Pulse Ox 96% on R/A; Weight 90.72 kg / gr2 200 lbs (R); Height 5 ft. 7 in. (170.18 cm) (R); Pain 4/10; 19:01 BP 151 / 90; Pulse 70; Resp 18; Temp 98.5; Pulse Ox 93% ; Pain 4/10; ajs 21:35 BP 149 / 72; Pulse 68; Resp 16; Temp 98.1; Pulse Ox 94% on R/A; Pain 1/10; ld5 17:59 Body Mass Index 31.32 (90.72 kg, 170.18 cm) gr2 MDM: 18:27 NS 0.9% 1000 ml IV at bolus once ordered. cc10 18:27 Ondansetron 4 mg IVP once ordered. cc10 18:27 ketorolac 30 mg IVP once ordered. cc10 18:27 IV Saline Lock ordered. cc10 18:27 Undress patient appropriately for examination ordered. cc10 18:27 LORazepam 0.5 mg IVP once ordered. cc10 18:28 Basic Metabolic Profile Ordered. EDMS 18:28 CBC with Diff Ordered. EDMS 18:28 Lipase Ordered. EDMS 18:28 Liver Profile Ordered. EDMS 18:28 Urinalysis Ordered. EDMS 18:28 Thyroid Profile Ordered. EDMS 18:28 Urine Culture Ordered. EDMS 18:29 CT ABD & PELVIS: IV Contrast Only Ordered. EDMS 18:29 NOTHING BY MOUTH+DIET ordered. EDMS 19:49 Financial registration complete. gjb 20:00 [facility] Payment Agreement was scanned into [employer] and attached to record. gjb 21:28 Basic Metabolic Profile Reviewed. cc10 21:28 CBC with Diff Reviewed. cc10 21:28 Thyroid Profile Reviewed. cc10 21:28 Lipase Reviewed. cc10 21:28 Liver Profile Reviewed. cc10 21:28 Urinalysis Reviewed. cc10 21:28 CT ABD & PELVIS: IV Contrast Only Reviewed. cc10 05/08 11:43 T-Sheet-- Draft Copy was scanned into [employer] and attached to record. gb Administered Medications: 05/07 19:14 Drug: NS 0.9% 1000 ml [sodium chloride 0.9 % intravenous solution] Route: IV; Rate: ld5 bolus; Site: left antecubital; 20:19 Follow up: IV Status: Completed infusion; IV Intake: 1000ml ld5 19:30 Drug: Ondansetron 4 mg [ondansetron HCl 2 mg/mL intravenous solution (2 mL)] Route: ld5 IVP; Site: left antecubital; 20:19 Follow up: Response: Nausea is decreased ld5 19:30 Drug: LORazepam 0.5 mg [lorazepam 2 mg/mL injection solution (0.25 mL)] Route: IVP; ld5 Site: left antecubital; 19:31 Drug: ketorolac 30 mg [ketorolac 30 mg/mL (1 mL) injection solution (1 mL)] Route: IVP; ld5 Site: left antecubital; 20:19 Follow up: Response: Pain is decreased ld5 Signatures: Dispatcher [employer] EDMS Charlene Mcnulty, Reg Massiel Clemons,RN RN kr3 Edie Herring RN RN ld5 Ricardo Bullock PA-C PAShannan cc10 Joellen Vizcarra The chart was reviewed and I authenticate all verbal orders and agree with the evaluation and treatment provided.Attachments: 20:00 [facility] Payment Agreement gjb 05/08 11:43 T-Sheet-- Draft Copy gb Chart Complete MTDD
[2016-05-12] MEDS ORDERED: BACITAB3 PO (15:59)
[2016-05-12] MEDS ORDERED: SERT-138 PO (15:59)
[2016-05-12] MEDS ORDERED: MULT1TAB10 PO (15:59)
[2016-05-12] MEDS ORDERED: SUCR1SUS PO (15:59)
[2016-05-12] MEDS ORDERED: VITA200038 PO (15:59)
[2016-05-12] MEDS ORDERED: ONDA4TAB6 PO (15:59)
[2016-05-12] MEDS ORDERED: LEVO200T4 PO (15:59)
[2016-05-12] MEDS ORDERED: EPIP0.3I2 IJ (15:59)
[2016-05-12] MEDS ORDERED: PROTPAK PO (15:59)
[2016-05-12] MEDS ORDERED: CEPH500C PO (15:59)
[2016-05-12] MEDS ORDERED: GABA300C3 PO (15:59)
[2016-05-12] MEDS ORDERED: CYCL10TA PO (15:59)
== END 2016-05-07 21:37 | disposition home or self-care (01) ==
LOC: M ED 17:58
DX: K21.9 Gastro-esophageal reflux disease without esophagitis (principal); R11.2 Nausea with vomiting, unspecified; E07.9 Disorder of thyroid, unspecified; Z79.899 Other long term (current) drug therapy; Z88.8 Allergy status to other drugs, medicaments and biological substances; Z88.2 Allergy status to sulfonamides; Z91.030 Bee allergy status
CPT/HCPCS: 36415; 74177; 80048; 80076; 81001; 83690; 84436; 84443; 84479; 85025; 87086; 96361; 96374; 96375; 99284; J1885; J2060; J2405; Q9967

== ENCOUNTER → 2016-05-10 | Outpatient (REF) | payer OTHER ==
[~2016-05-10] MED LIST: BACITAB3 PO; CEPH500C PO; CYCL10TA PO; EPIP0.3I2 IJ; GABA300C3 PO; LEVO200T4 PO; MULT1TAB10 PO; ONDA4TAB6 PO; PROTPAK PO; SERT-138 PO; SUCR1SUS PO; VITA200038 PO
== END ==
LOC: M SFHCPLAZ 15:19
PROVIDERS: ATTEND Nurse Practitioner Family
DX: T81.4XXS Infection following a procedure, sequela (principal)

== ENCOUNTER → 2016-05-19 | Outpatient (CLI) | payer OTHER ==
[~2016-05-19] VITALS: Ht 172.7 cm; Wt 93.4 kg
[~2016-05-19] MED LIST changes: +LIDOCAINE 2% INJ 100 MG/5 ML SDV (FOR ANES.) As Ordered ONE; +NS 1,000 ML IV SCH; +PROPOFOL 200 MG/20 ML VIAL As Ordered ONE; +fentaNYL 100 MCG/2 ML INJECTION (J3010) As Ordered ONE
--- NOTE | 2016-05-19 13:53 | ROOR ---
Patient Name: Daylin Rahman Procedure Date: 05/19/2016 1:32 PM Date of : 1955 Age: 61 Room: [facility] Gender: Female Note Status: Finalized Procedure: Upper GI endoscopy Indications: Oropharyngeal phase dysphagia Providers: Dante PEREZ MD Referring MD: EMIGDIO LOVE MD Requesting Provider: Medicines: Monitored Anesthesia Care Complications: No immediate complications. Procedure: Pre-Anesthesia Assessment: - The heart rate, respiratory rate, oxygen saturations, blood pressure, adequacy of pulmonary ventilation, and response to care were monitored throughout the procedure. The Endoscope was introduced through the mouth, and advanced to the second part of duodenum. The upper GI endoscopy was accomplished without difficulty. The patient tolerated the procedure well. Findings: A web was found at the cricopharyngeus. The scope was withdrawn. Dilation was performed with a Mercado dilator with mild resistance at 54 Fr. The exam of the esophagus was otherwise normal. The entire examined stomach was normal. The examined duodenum was normal. Impression: - Web at the cricopharyngeus. Dilated with 54 F mercado. - Normal stomach. - Normal examined duodenum. - No specimens collected. Recommendation: - Observe patient's clinical course. Dante Perez MD Dante PEREZ MD 05/19/2016 1:52:48 PM This report has been signed electronically. Number of Addenda: 0 Note Initiated On: 05/19/2016 1:32 PM Estimated Blood Loss: Estimated blood loss: none.
[2016-05-19 14:20] VITALS: BP 123/77
== END ==
LOC: M OPP 12:40
PROVIDERS: ATTEND Internal Medicine Gastroenterology
DX: R12 Heartburn (principal); Q39.4 Esophageal web; R13.12 Dysphagia, oropharyngeal phase; E03.9 Hypothyroidism, unspecified; M48.04 Spinal stenosis, thoracic region; M54.30 Sciatica, unspecified side; F41.9 Anxiety disorder, unspecified; F32.9 Major depressive disorder, single episode, unspecified; Z88.0 Allergy status to penicillin; Z88.6 Allergy status to analgesic agent; Z88.2 Allergy status to sulfonamides; Z88.8 Allergy status to other drugs, medicaments and biological substances; Z87.891 Personal history of nicotine dependence; Z79.899 Other long term (current) drug therapy
CPT/HCPCS: 43235; 43450; J3010

== ENCOUNTER → 2016-08-04 | Outpatient (CLI) | payer OTHER ==
[~2016-08-04] VITALS: Ht 170.2 cm; Wt 90.7 kg
[~2016-08-04] MED LIST changes: +GABA-282 PO; +GABA-283 PO; -GABA300C3 PO; +LEVO100T5 PO; +LEVO88TA3 PO; -fentaNYL 100 MCG/2 ML INJECTION (J3010) As Ordered ONE
--- NOTE | 2016-08-04 10:21 | ROOR ---
Patient Name: Daylin Acostast. Germain Procedure Date: 08/04/2016 10:07 AM Date of : 1955 Age: 61 Room: [facility] Gender: Female Note Status: Finalized Procedure: Colonoscopy Indications: High risk colon cancer surveillance: Personal history of colonic polyps, Last colonoscopy: January 2009, Family history of colon cancer in a first-degree relative, (Sister<50) Providers: Dante PEREZ MD Referring MD: EMIGDIO LOVE MD Requesting Provider: Medicines: Monitored Anesthesia Care Complications: No immediate complications. Procedure: Pre-Anesthesia Assessment: - The heart rate, respiratory rate, oxygen saturations, blood pressure, adequacy of pulmonary ventilation, and response to care were monitored throughout the procedure. The Colonoscope was introduced through the anus and advanced to the cecum, identified by appendiceal orifice and ileocecal valve. The colonoscopy was performed without difficulty. The patient tolerated the procedure well. The quality of the bowel preparation was adequate and fair. Findings: The perianal exam findings include non-thrombosed external hemorrhoids and skin tags. (EXAM: Complete, PREP: Fair/Adequate after extensive lavage) The entire examined colon appeared normal on direct and retroflexion views. Impression: - Preparation of the colon was fair. - Non-thrombosed external hemorrhoids and perianal skin tags found on perianal exam. - The entire examined colon is normal on direct and retroflexion views. - No specimens collected. Recommendation: - Repeat colonoscopy in 2 years because the bowel preparation was suboptimal. Dante Perez MD Dante PEREZ MD 08/04/2016 10:21:22 AM This report has been signed electronically. Number of Addenda: 0 Note Initiated On: 08/04/2016 10:07 AM Estimated Blood Loss: Estimated blood loss: none.
[2016-08-04 10:40] VITALS: BP 155/100
== END | disposition home or self-care (01) ==
LOC: M OPP 08:26
PROVIDERS: ATTEND Internal Medicine Gastroenterology
DX: Z12.11 Encounter for screening for malignant neoplasm of colon (principal); K64.4 Residual hemorrhoidal skin tags; Z86.010 Personal history of colon polyps; Z80.0 Family history of malignant neoplasm of digestive organs; E03.9 Hypothyroidism, unspecified; R12 Heartburn; F41.9 Anxiety disorder, unspecified; F32.9 Major depressive disorder, single episode, unspecified; R56.9 Unspecified convulsions; K21.9 Gastro-esophageal reflux disease without esophagitis; J45.909 Unspecified asthma, uncomplicated; M48.00 Spinal stenosis, site unspecified; M54.30 Sciatica, unspecified side; Z88.8 Allergy status to other drugs, medicaments and biological substances; Z88.2 Allergy status to sulfonamides; Z79.899 Other long term (current) drug therapy; Z98.1 Arthrodesis status; Z80.1 Family history of malignant neoplasm of trachea, bronchus and lung

== ENCOUNTER → 2016-08-22 | Outpatient (REF) | payer OTHER ==
[~2016-08-22] MED LIST changes: -LIDOCAINE 2% INJ 100 MG/5 ML SDV (FOR ANES.) As Ordered ONE; -NS 1,000 ML IV SCH; -PROPOFOL 200 MG/20 ML VIAL As Ordered ONE
[2016-08-22 16:47] LABS: FREE T4 1.08 NG/DL (0.76-1.46)
== END ==
LOC: M SFHCPLAZ 14:50
PROVIDERS: ATTEND Nurse Practitioner Family
DX: E03.9 Hypothyroidism, unspecified (principal)

== ENCOUNTER 2016-09-29 16:43 | Emergency (ER) | payer OTHER ==
[~2016-09-29] VITALS: Ht 170.2 cm; Wt 89.8 kg
[2016-09-29] MEDS ORDERED: KETOROLAC 60 MG/2 ML VIAL (J1885) IM ONE (19:00)
[2016-09-29] MEDS ORDERED: VALI5TAB PO (20:22)
[2016-09-29] MEDS ORDERED: NAPR500T PO (20:22)
--- NOTE | 2016-09-29 20:31 | REP ---
CT LUMBAR SPINE WITHOUT CONTRAST: HISTORY: Back pain. COMPARISON: 08/26/2014 There is no disc bulge or herniation at the L1-2 and L2-3 levels. The nerves exit the neural foramina without compression. A diffuse disc bulge is present at the L3-4 level. There is hypertrophy of the ligamenta flava and posterior articulating facets. These findings produce minimal central canal stenosis. The L3 nerves exit the neural foramina without compression. A diffuse disc bulge is present at the L4-5 level. There is hypertrophy of the ligamenta flava and posterior articulating facets. These findings produce minimal central canal stenosis. The L4 nerves exit the neural foramina without compression. A diffuse disc bulge is present at the L5-S1 level. This abuts the thecal sac and S1 nerves. There is hypertrophy of the posterior articulating facets. The L5 nerves exit the neural foramina without compression. The L2-3 through L4-5 intervertebral discs are decreased in height consistent with disc degeneration. There is no fracture or subluxation. IMPRESSION: 1. Minimal central canal stenosis at the L3-4 and L4-5 levels secondary to disc bulge, ligamentous and facet hypertrophy. 2. Diffuse disc bulge at the L5-S1 level. This abuts the thecal sac and S1 nerves. There is no significant change compared to the previous study. Signed by Lorne Lr MD 09/30/2016 09:00 A
[2016-09-29 20:34] VITALS: BP 140/58
== END 2016-09-29 20:35 | disposition home or self-care (01) ==
LOC: M ED 18:17
DX: M54.31 Sciatica, right side (principal); M51.17 Intervertebral disc disorders with radiculopathy, lumbosacral region; F32.9 Major depressive disorder, single episode, unspecified; E03.9 Hypothyroidism, unspecified; Z90.79 Acquired absence of other genital organ(s); Z79.899 Other long term (current) drug therapy; Z88.2 Allergy status to sulfonamides; Z88.1 Allergy status to other antibiotic agents; Z88.8 Allergy status to other drugs, medicaments and biological substances

== ENCOUNTER → 2016-10-06 | Outpatient (REF) | payer OTHER ==
[~2016-10-06] MED LIST changes: +NAPR500T PO; +VALI5TAB PO
[2016-10-06 13:38] LABS: FREE T4 0.7 NG/DL (0.76-1.46)
== END ==
LOC: M SFHCPLAZ 09:21
PROVIDERS: ATTEND Nurse Practitioner Family
DX: E03.9 Hypothyroidism, unspecified (principal)

== ENCOUNTER → 2016-11-21 | Outpatient (REF) | payer OTHER ==
[~2016-11-21] MED LIST changes: +BACITAB PO; -BACITAB3 PO; +PREV1CAP PO; +VITA200028 PO; +VITAD1000T PO
[2016-11-21 18:38] LABS: FREE T4 1.48 NG/DL (0.76-1.46)
== END ==
LOC: M SFHCPLAZ 13:34
PROVIDERS: ATTEND Nurse Practitioner Family
DX: E03.9 Hypothyroidism, unspecified (principal)

== ENCOUNTER → 2017-01-10 | Outpatient (REF) | payer OTHER ==
[2017-01-10 16:27] LABS: FOLATE 10.4 NG/ML (>5.4)
[2017-01-10 16:33] LABS: FREE T4 0.81 NG/DL (0.76-1.46)
== END ==
LOC: M SFHCPLAZ 14:34
PROVIDERS: ATTEND Nurse Practitioner Family
DX: R41.3 Other amnesia (principal); E03.9 Hypothyroidism, unspecified

== ENCOUNTER → 2017-01-22 | Outpatient (CLI) | payer OTHER ==
--- NOTE | 2017-01-22 17:04 | REP ---
MR BRAIN WITHOUT CONTRAST: HISTORY: Memory difficulty. COMPARISON: CT 12/10/2014. Several punctate areas of increased signal intensity on T2 weighted images are present in the subcortical white matter. This represents small vessel ischemic disease. There is no intraparenchymal hemorrhage, infarct, mass, or midline shift. The ventricular system is normal in appearance. There is no extracerebral collection. There is a small 3 mm focus of ectasia or possible aneurysm involving the medial cavernous left internal carotid artery. The sinuses are clear. IMPRESSION: 1. Minimal small vessel ischemic disease. 2. There is a small focus of ectasia or possible aneurysm, involving the medial cavernous left internal carotid artery. MRA of the brain is recommended for further evaluation. Signed by Lorne Lr MD 01/22/2017 05:09 P
== END ==
LOC: M PLARAD 14:46
PROVIDERS: ATTEND Nurse Practitioner Family
DX: R41.3 Other amnesia (principal)

== ENCOUNTER → 2017-02-02 | Outpatient (CLI) | payer OTHER ==
--- NOTE | 2017-02-02 10:56 | REP ---
MRA BRAIN WITHOUT CONTRAST: HISTORY: Vascular ectasia. 3D [id number]-dy-vloyny MR angiography was performed at the level of the [place]. The examination is limited secondary to motion. A small aneurysm is present arising from the cavernous left internal carotid artery. The aneurysm measures 3.3 x 2.5 mm. The aneurysm projects medial from the cavernous left internal carotid artery. There is no other aneurysm or arteriovenous malformation. Mild atherosclerotic disease involves the cavernous and supraclinoid internal carotid arteries. Major intracranial vessels are patent. The vertebral arteries are equal in size. IMPRESSION: 1. 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 2. Atherosclerotic disease, as described above. Signed by Lorne Lr MD 02/02/2017 10:57 A
== END ==
LOC: M PLARAD 08:55
PROVIDERS: ATTEND Nurse Practitioner Family
DX: I77.9 Disorder of arteries and arterioles, unspecified (principal)

== ENCOUNTER 2017-02-19 12:19 | Emergency (ER) | payer OTHER ==
[~2017-02-19] VITALS: Ht 172.7 cm; Wt 85.0 kg
[~2017-02-19 12:19] MED LIST changes: -PREV1CAP PO; -VITA200028 PO; -VITAD1000T PO
[2017-02-19] MEDS ORDERED: PREV1CAP PO (12:39)
[2017-02-19] MEDS ORDERED: VITA200028 PO (12:39)
[2017-02-19] MEDS ORDERED: VITAD1000T PO (12:39)
[2017-02-19] MEDS ORDERED: MORPHINE 2 MG/ML 1ML SYRINGE IV ONE (13:15)
[2017-02-19] MEDS ORDERED: NS 500 ML IV ONE (13:15)
[2017-02-19] MEDS ORDERED: PROMETHAZINE INJ 25 MG/ML VIAL (J2550) IV ONE (13:15)
--- NOTE | 2017-02-19 13:28 | REP ---
CT of the brain without IV contrast: Comparisons 03/04/2011. I note that on a on an MRA of the brain dated 10/17/2016 there was a 3.3 mm left cavernous internal carotid artery aneurysm. This aneurysm is not visible on the CT study today, MRA be more sensitive. There is no hemorrhage. There is no edema, mass effect or midline shift. The cortical stripe is unremarkable. Ventricles are normal size and midline. The visualized paranasal sinuses and mastoid air cells are clear. Impression: There is no hemorrhage, acute infarct or mass. Negative CT study of the brain. No change from the prior CT. The patient's known left cavernous internal carotid artery aneurysm is not visible by CT. Signed by Simba John MD 02/19/2017 01:20 P
[2017-02-19 13:49] LABS: BASO % 0.5 % (0.0-1.0); EOS # 0.4 10^3/uL (0.0-0.50); EOS % 4.9 % (0.0-3.0); IMMATURE GRANULOCYTE % 0.4 % (0-0); LYMPH # 2.3 10^3/uL (1.5-4.5); LYMPH % 28.6 % (24.0-44.0); MEAN CORPUSCULAR HEMOGLOBIN 30.4 pg (27.0-33.0); MONO # 0.6 10^3/uL (0.0-0.8); MONO % 7.6 % (0.0-5.0); NEUTROPHILS # 4.7 10^3/uL (1.8-7.7); PLATELET COUNT, AUTOMATED 281 10^3/uL (150-450); RED CELL DISTRIBUTION WIDTH 13.1 % (11.5-14.5)
[2017-02-19 13:57] LABS: ANION GAP 5 MEQ/L (8-16); BLOOD UREA NITROGEN 10 MG/DL (7-18); CALCIUM LEVEL 9.4 MG/DL (8.8-10.2); CARBON DIOXIDE LEVEL 27 MEQ/L (21-32); CHLORIDE LEVEL 109 MEQ/L (98-107); CREATININE FOR GFR 0.98 MG/DL (0.55-1.02); GLOMERULAR FILTRATION RATE > 60.0 (>45); GLUCOSE, FASTING 100 MG/DL (80-110); POTASSIUM SERUM 3.9 MEQ/L (3.5-5.1); SODIUM LEVEL 141 MEQ/L (136-145)
[2017-02-19 14:03] LABS: INR 0.97
[2017-02-19] MEDS ORDERED: KETOROLAC 30 MG/ML VIAL (J1885) IV ONE (14:30)
[2017-02-19 14:45] VITALS: BP 130/79
== END 2017-02-19 14:49 | disposition home or self-care (01) ==
LOC: EDBD 12:19 → M ED 12:19
DX: G43.809 Other migraine, not intractable, without status migrainosus (principal); Z79.899 Other long term (current) drug therapy; Z88.1 Allergy status to other antibiotic agents; Z88.2 Allergy status to sulfonamides; Z88.8 Allergy status to other drugs, medicaments and biological substances
CPT/HCPCS: 70450; 80048; 85025; 85610; 85730; 96374; 96375; 99284; J1885

== ENCOUNTER 2017-05-21 15:25 | Emergency (ER) | payer OTHER ==
[2017-05-21] MEDS: ASPIRIN 81 MG CHEW TABLET PO (16:12)
[2017-05-21 16:33] LABS: BASO # 0.1 10^3/uL (0.0-0.2); BASO % 0.5 % (0.0-1.0); EOS # 0.5 10^3/uL (0.0-0.50); EOS % 5.5 % (0.0-3.0); HEMATOCRIT 42.3 % (36.0-47.0); HEMOGLOBIN 14.2 g/dl (12.0-16.0); IMMATURE GRANULOCYTE % 0.4 % (0-0); LYMPH # 3.4 10^3/uL (1.5-4.5); LYMPH % 37.1 % (24.0-44.0); MEAN CORPUSCULAR HEMOGLOBIN 30.5 pg (27.0-33.0); MEAN CORPUSCULAR HGB CONC 33.6 g/dl (32.0-36.5); MONO # 0.8 10^3/uL (0.0-0.8); MONO % 8.3 % (0.0-5.0); NEUTROPHILS # 4.4 10^3/uL (1.8-7.7); NEUTROPHILS % 48.2 % (36.0-66.0); PLATELET COUNT, AUTOMATED 264 10^3/uL (150-450); RED BLOOD COUNT 4.65 10^6/uL (4.00-5.40); RED CELL DISTRIBUTION WIDTH 13.1 % (11.5-14.5); WHITE BLOOD COUNT 9.2 10^3/uL (4.0-10.0)
[2017-05-21 16:39] LABS: D-DIMER QUANT 342.2 ng/ml (<500)
[2017-05-21 16:39] LABS: ANION GAP 7 MEQ/L (8-16); BLOOD UREA NITROGEN 13 MG/DL (7-18); CALCIUM LEVEL 9.4 MG/DL (8.8-10.2); CARBON DIOXIDE LEVEL 27 MEQ/L (21-32); CHLORIDE LEVEL 107 MEQ/L (98-107); CK-MB VALUE MASS 1.2 NG/ML (0.0-3.6); CPK CREATINE PHOSPHOKINASE 76 U/L (26-192); CREATININE FOR GFR 0.85 MG/DL (0.55-1.02); GLOMERULAR FILTRATION RATE > 60.0 (>45); GLUCOSE, FASTING 94 MG/DL (70-100); MB/CK RELATIVE INDEX 1.57 (< OR =4); POTASSIUM SERUM 3.9 MEQ/L (3.5-5.1); SODIUM LEVEL 141 MEQ/L (136-145); TROPONIN I < 0.02 NG/ML (< 0.10)
[2017-05-21 20:41] LABS: CPK CREATINE PHOSPHOKINASE 77 U/L (26-192); TROPONIN I < 0.02 NG/ML (< 0.10)
[2017-05-21 20:42] LABS: CK-MB VALUE MASS 1.4 NG/ML (0.0-3.6); MB/CK RELATIVE INDEX 1.81 (< OR =4)
[2017-05-21] MEDS: NAPROXEN 250 MG TAB PO (21:30)
== END 2017-05-21 22:02 | disposition home or self-care (01) ==
LOC: M ED 15:25
DX: R07.89 Other chest pain (principal)
CPT/HCPCS: 71046

== ENCOUNTER 2017-06-01 14:22 | Outpatient (RCR) | payer OTHER | END 2017-06-27 | LOC: M PT 14:22 | DX: Z51.89 Encounter for other specified aftercare (principal); M54.5 Low back pain; M48.061 Spinal stenosis, lumbar region without neurogenic claudication | CPT/HCPCS: 97010 ==

== ENCOUNTER 2017-06-12 15:23 | Emergency (ER) | payer OTHER ==
[2017-06-12] MEDS: KETOROLAC 60 MG/2 ML VIAL (J1885) IM (19:00)
== END 2017-06-12 20:14 | disposition home or self-care (01) ==
LOC: M ED 15:23
DX: S40.011A Contusion of right shoulder, initial encounter (principal); S30.0XXA Contusion of lower back and pelvis, initial encounter; W00.9XXA Unspecified fall due to ice and snow, initial encounter; Y92.9 Unspecified place or not applicable; Y93.01 Activity, walking, marching and hiking; Y99.0 Civilian activity done for income or pay; M48.00 Spinal stenosis, site unspecified; E03.9 Hypothyroidism, unspecified; F41.9 Anxiety disorder, unspecified; F32.9 Major depressive disorder, single episode, unspecified; Z79.899 Other long term (current) drug therapy; Z88.1 Allergy status to other antibiotic agents; Z88.2 Allergy status to sulfonamides; Z88.8 Allergy status to other drugs, medicaments and biological substances
CPT/HCPCS: J1885

== ENCOUNTER 2017-07-09 13:30 | Emergency (ER) | payer OTHER ==
[2017-07-09] MEDS: NAPROXEN 250 MG TAB PO (15:40)
== END 2017-07-09 16:36 | disposition home or self-care (01) ==
LOC: M ED 13:30
DX: M51.36 Other intervertebral disc degeneration, lumbar region (principal); M62.830 Muscle spasm of back; G89.29 Other chronic pain; M54.9 Dorsalgia, unspecified; K21.9 Gastro-esophageal reflux disease without esophagitis; Z79.899 Other long term (current) drug therapy; Z88.1 Allergy status to other antibiotic agents; Z88.2 Allergy status to sulfonamides; Z88.8 Allergy status to other drugs, medicaments and biological substances
CPT/HCPCS: 72110

== ENCOUNTER → 2017-11-14 | Outpatient (REF) | payer OTHER ==
[2017-11-14 12:31] LABS: TOTAL 25(OH) VITAMIN D 40.7 NG/ML (30.0-100.0)
[2017-11-14 12:52] LABS: ALBUMIN 3.5 GM/DL (3.2-5.2); ALBUMIN/GLOBULIN RATIO 0.92 (1.00-1.93); ALKALINE PHOSPHATASE 110 U/L (45-117); ALT/SGPT 24 U/L (12-78); ANION GAP 8 MEQ/L (8-16); AST/SGOT 16 U/L (7-37); BILIRUBIN,TOTAL 0.3 MG/DL (0.2-1.0); BLOOD UREA NITROGEN 16 MG/DL (7-18); CALCIUM LEVEL 8.9 MG/DL (8.8-10.2); CARBON DIOXIDE LEVEL 25 MEQ/L (21-32); CHLORIDE LEVEL 110 MEQ/L (98-107); CHOLESTEROL LEVEL 230 MG/DL (<200); CHOLESTEROL RISK RATIO 4.423 (<5); CREATININE FOR GFR 1.05 MG/DL (0.55-1.30); GLOMERULAR FILTRATION RATE 56.7 (>45); GLUCOSE, FASTING 104 MG/DL (70-100); HDL CHOLESTEROL 52 MG/DL (>40); LDL CHOLESTEROL 152.8 MG/DL (<100); NON-HDL-C 178 MG/DL; POTASSIUM SERUM 4.2 MEQ/L (3.5-5.1); SODIUM LEVEL 143 MEQ/L (136-145); TOTAL PROTEIN 7.3 GM/DL (6.4-8.2); TRIGLYCERIDES LEVEL 126 MG/DL (<150)
[2017-11-14 13:37] LABS: ESTIMATED AVERAGE GLUCOSE 128 MG/DL (60-110); HEMOGLOBIN A1c 6.1 %
== END ==
LOC: M LABDRAW1 09:39
DX: Z00.00 Encounter for general adult medical examination without abnormal findings (principal); E78.00 Pure hypercholesterolemia, unspecified; E03.9 Hypothyroidism, unspecified; E55.9 Vitamin D deficiency, unspecified

== ENCOUNTER → 2017-11-14 | Outpatient (REF) | payer OTHER ==
[2017-11-14 12:24] LABS: VITAMIN B12 LEVEL 487 PG/ML
[2017-11-14 12:25] LABS: FOLATE 8.8 NG/ML
[2017-11-14 12:34] LABS: ERYTHROCYTE SEDIMENTATION RATE 4 mm/hr (0-30)
[2017-11-14 12:38] LABS: RHEUMATOID FACTOR QUANT < 10.0 IU/ML (<15.0)
[2017-11-19 14:14] LABS: ANTINUCLEAR ANTIBODIES DIRECT Negative (Negative); VITAMIN B1 LEVEL WHOLE BLOOD 130.3 nmol/L (66.5-200.0); VITAMIN B6,PYRIDOXAL PHOSPHATE 4.5 ug/L (2.0-32.8); VITAMIN E(ALPHA TOCOPHEROL) 10.9 mg/L (9.0-29.0); VITAMIN E(GAMMA TOCOPHEROL) 4.5 mg/L (0.5-4.9)
[2017-11-20 10:41] LABS: DRVV SCREEN 42.2 SEC
== END ==
LOC: M LABDRAW1 09:41
DX: R51 Headache (principal); G62.9 Polyneuropathy, unspecified
CPT/HCPCS: 82746

== ENCOUNTER → 2018-03-25 | Outpatient (CLI) | payer OTHER | LOC: M WHC 14:34 | DX: Z12.31 Encounter for screening mammogram for malignant neoplasm of breast (principal) | CPT/HCPCS: 77067 ==

== ENCOUNTER 2018-08-07 16:14 | Emergency (ER) | payer OTHER ==
[~2018-08-07 16:14] MED LIST changes: +ACET-716 PO; -GABA-282 PO; -GABA-283 PO; +GABA-843 PO; +GABA-845 PO; +KETO10TAB PO; +NAPR-837 PO; +NAPR-885 PO; -NAPR500T PO; +PREV1CAP PO; +ROBA500T PO; +VITA200028 PO; +VITAD1000T PO
[2018-08-07 17:24] LABS: BASO # 0.1 10^3/uL (0.0-0.2); BASO % 0.6 % (0.0-1.0); EOS # 0.5 10^3/uL (0.0-0.50); EOS % 6.2 % (0.0-3.0); HEMATOCRIT 42.1 % (36.0-47.0); HEMOGLOBIN 13.7 g/dl (12.0-15.5); LYMPH # 3.3 10^3/uL (1.5-4.5); LYMPH % 38.7 % (24.0-44.0); MEAN CORPUSCULAR HEMOGLOBIN 30.4 pg (27.0-33.0); MEAN CORPUSCULAR HGB CONC 32.5 g/dl (32.0-36.5); MEAN CORPUSCULAR VOLUME 93.3 fl (80.0-96.0); MONO # 0.7 10^3/uL (0.0-0.8); MONO % 8.1 % (0.0-5.0); NEUTROPHILS # 3.8 10^3/uL (1.8-7.7); NEUTROPHILS % 45.4 % (36.0-66.0); PLATELET COUNT, AUTOMATED 263 10^3/uL (150-450); RED BLOOD COUNT 4.51 10^6/uL (4.00-5.40); WHITE BLOOD COUNT 8.4 10^3/uL (4.0-10.0)
--- NOTE | 2018-08-07 17:32 | REP ---
PA and lateral chest: Comparison is 05/21/2017. The lung curry are clear. The cardiac size is normal. The mary, mediastinum, and skeletal structures are unremarkable. There is a cervical spine stabilization plate, unchanged. Impression: Negative PA and lateral chest. There is no interval change. Electronically Signed by Simba John MD 08/07/2018 05:21 P
[2018-08-07 17:57] LABS: ALBUMIN 3.4 GM/DL (3.2-5.2); ALT/SGPT 24 U/L (12-78); BILIRUBIN,DIRECT < 0.1 MG/DL (0.0-0.2); BILIRUBIN,TOTAL 0.3 MG/DL (0.2-1.0); BLOOD UREA NITROGEN 13 MG/DL (7-18); CALCIUM LEVEL 8.9 MG/DL (8.8-10.2); CARBON DIOXIDE LEVEL 27 MEQ/L (21-32); CHLORIDE LEVEL 107 MEQ/L (98-107); CPK CREATINE PHOSPHOKINASE 79 U/L (26-192); CREATININE FOR GFR 0.89 MG/DL (0.55-1.30); GLOMERULAR FILTRATION RATE > 60.0 (>45); GLUCOSE, FASTING 97 MG/DL (70-100); MB/CK RELATIVE INDEX 2.28 (< OR =4); NT-PRO BNP 162 PG/ML (<125); POTASSIUM SERUM 4.3 MEQ/L (3.5-5.1); SODIUM LEVEL 140 MEQ/L (136-145); TOTAL PROTEIN 6.9 GM/DL (6.4-8.2); TROPONIN I < 0.02 NG/ML (< 0.10)
[2018-08-07 20:53] LABS: CPK CREATINE PHOSPHOKINASE 79 U/L (26-192); MB/CK RELATIVE INDEX 1.65 (< OR =4); TROPONIN I < 0.02 NG/ML (< 0.10)
[2018-08-07 21:06] VITALS: BP 118/69
--- NOTE | 2018-08-07 21:47 | ECGEPIP ---
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
--- NOTE | 2018-08-07 21:51 | ECGEPIP ---
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
== END 2018-08-07 21:07 | disposition home or self-care (01) ==
LOC: EDBD 16:14 → M ED 16:14
DX: R07.89 Other chest pain (principal); E03.9 Hypothyroidism, unspecified; G43.909 Migraine, unspecified, not intractable, without status migrainosus; Z79.899 Other long term (current) drug therapy; Z79.890 Hormone replacement therapy; Z88.2 Allergy status to sulfonamides; Z88.8 Allergy status to other drugs, medicaments and biological substances; Z87.891 Personal history of nicotine dependence

== ENCOUNTER → 2018-10-16 | Outpatient (CLI) | payer OTHER ==
[~2018-10-16] MED LIST changes: +METHACHOLINE KIT (J7674) INH ONE
--- NOTE | 2018-10-16 07:19 | PFTRPT ---
Height: 67.00 Inches Weight: 185.00 Lbs BSA: 1.96 Diagnosis: R05 DATE OF PROCEDURE: 10/16/2018 ORDERED BY: Giuliana Nina Spirometry: Study of excellent technical quality. Forced vital capacity normal. FEV1 in proportion. Obstructive index is, therefore, normal. Flow Volume Loop: Expiratory limb of the flow volume loop is normal. Lung Volumes: Total lung capacity normal. Residual volume in proportion. Diffusing Capacity: Diffusing capacity is mildly reduced but is appropriate for alveolar volume. Hemoglobin: No hemoglobin available for correction. IMPRESSION: Mild diffusing capacity impairment. Please correlate clinically. MTDD
--- NOTE | 2018-10-16 07:59 | PFTRPT ---
Height: 67.00 Inches Weight: 185.00 Lbs BSA: 1.96 Diagnosis: R05 DATE OF PROCEDURE: 10/16/2018 ORDERED BY: Giuliana Nina INTERPRETATION: Study of excellent technical quality. Under protocol, methacholine was administered. At a dose of 10 mg or 63.875 CDUs, a 26% decline in the FEV1 was noted. PC of 5.36 does meet diagnostic criteria. IMPRESSION: Positive methacholine challenge study. Flow rates did return to baseline post bronchodilator administration. MTDD
== END ==
LOC: M CARPUL 06:47
PROVIDERS: ATTEND Nurse Practitioner Adult Health
DX: R05 Cough (principal); R94.2 Abnormal results of pulmonary function studies
CPT/HCPCS: 94010; 94070; 94726; 94729; 95070; J7674

== ENCOUNTER 2018-11-25 09:32 | Day surgery (SDC) | payer OTHER ==
[~2018-11-25] VITALS: Ht 170.2 cm; Wt 82.0 kg
[~2018-11-25 09:32] MED LIST changes: +CYMB1CAP5 PO; +DRIS50003 PO; +LEVO175T2 PO; +LEVO75TA4 PO; -METHACHOLINE KIT (J7674) INH ONE; +MULTCAP PO; +RA T500C2 PO; +VENTAER INH
[2018-11-25] MEDS ORDERED: NS 1,000 ML IV ONE (10:30)
[2018-11-25] MEDS ORDERED: APPL300T4 PO (10:39)
[2018-11-25] MEDS ORDERED: LIDOCAINE 2% INJ 100 MG/5 ML SDV (FOR ANES.) As Ordered ONE (11:07)
[2018-11-25] MEDS ORDERED: PROPOFOL 200 MG/20 ML VIAL As Ordered ONE ×2 (11:07→11:22)
--- NOTE | 2018-11-25 11:22 | ROOR ---
Patient Name: Daylin Germain Procedure Date: 11/25/2018 11:06 AM Date of : 1955 Age: 63 Room: [facility] Gender: Female Note Status: Finalized Procedure: Upper GI endoscopy Indications: Dysphagia, Heartburn, Esophageal reflux Providers: Dante PEREZ MD Referring MD: Giuliana MACIAS NP Requesting Provider: Medicines: Monitored Anesthesia Care Complications: No immediate complications. Procedure: Pre-Anesthesia Assessment: - The heart rate, respiratory rate, oxygen saturations, blood pressure, adequacy of pulmonary ventilation, and response to care were monitored throughout the procedure. The Endoscope was introduced through the mouth, and advanced to the second part of duodenum. The upper GI endoscopy was accomplished without difficulty. The patient tolerated the procedure well. Findings: The esophagus was normal. The stomach was normal. The examined duodenum was normal. Impression: - Normal esophagus. - Normal stomach. - Normal examined duodenum. - No specimens collected. Recommendation: - Use Prilosec (omeprazole) 20 mg PO BID. Dante Perez MD Dante PEREZ MD 11/25/2018 11:21:35 AM Electronically signed by Dante PEREZ MD Number of Addenda: 0 Note Initiated On: 11/25/2018 11:06 AM Estimated Blood Loss: Estimated blood loss: none.
--- NOTE | 2018-11-25 11:37 | ROOR ---
Patient Name: Daylin Germain Procedure Date: 11/25/2018 11:08 AM Date of : 1955 Age: 63 Room: OP02 Gender: Female Note Status: Finalized Procedure: Colonoscopy Indications: High risk colon cancer surveillance: Personal history of colonic polyps Providers: Dante PEREZ MD Referring MD: Giuliana MACIAS NP Requesting Provider: Medicines: Monitored Anesthesia Care Complications: No immediate complications. Procedure: Pre-Anesthesia Assessment: - The heart rate, respiratory rate, oxygen saturations, blood pressure, adequacy of pulmonary ventilation, and response to care were monitored throughout the procedure. The Colonoscope was introduced through the anus and advanced to the cecum, identified by appendiceal orifice and ileocecal valve. The colonoscopy was performed without difficulty. The patient tolerated the procedure well. The quality of the bowel preparation was poor. Findings: The perianal and digital rectal examinations were normal. A 5 mm polyp was found in the splenic flexure. The polyp was sessile. The polyp was removed with a cold snare. Resection and retrieval were complete. Retroflexion in the right colon was performed. The exam was otherwise without abnormality on direct and retroflexion views. Impression: - Preparation of the colon was poor. - One 5 mm polyp at the splenic flexure, removed with a cold snare. Resected and retrieved. - The examination was otherwise normal on direct and retroflexion views. Recommendation: - Repeat colonoscopy at the next available appointment because the bowel preparation was suboptimal. - My office will call you to reschedule the procedure. Dante Perez MD Dante PEREZ MD 11/25/2018 11:36:33 AM Electronically signed by Dante PEREZ MD Number of Addenda: 0 Note Initiated On: 11/25/2018 11:08 AM Estimated Blood Loss: Estimated blood loss: none.
[2018-11-25 12:06] VITALS: BP 170/83
== END 2018-11-25 12:15 | disposition home or self-care (01) ==
LOC: M OPP 09:32
PROVIDERS: ATTEND Internal Medicine Gastroenterology
DX: Z12.11 Encounter for screening for malignant neoplasm of colon (principal); Z86.010 Personal history of colon polyps; D12.3 Benign neoplasm of transverse colon; R13.10 Dysphagia, unspecified; R12 Heartburn; K21.9 Gastro-esophageal reflux disease without esophagitis; F32.9 Major depressive disorder, single episode, unspecified; F41.9 Anxiety disorder, unspecified; M54.30 Sciatica, unspecified side; Z86.79 Personal history of other diseases of the circulatory system; E03.9 Hypothyroidism, unspecified; M48.04 Spinal stenosis, thoracic region; R56.9 Unspecified convulsions; Z92.3 Personal history of irradiation; R06.02 Shortness of breath; R05 Cough; J45.909 Unspecified asthma, uncomplicated; Z87.891 Personal history of nicotine dependence; Z91.048 Other nonmedicinal substance allergy status; Z88.8 Allergy status to other drugs, medicaments and biological substances; Z88.2 Allergy status to sulfonamides; Z79.899 Other long term (current) drug therapy

== ENCOUNTER → 2019-01-17 | Outpatient (CLI) | payer OTHER ==
[~2019-01-17] MED LIST changes: +APPL300T4 PO; +CHOL100029 PO; +PANT20TA2 PO; +SUCR1ORA PO; -SUCR1SUS PO; -VITAD1000T PO
--- NOTE | 2019-02-03 00:19 | ECWPNPC ---
PATIENT NAME: EARLENE ROMAN : 1955 GENDER: FEMALE VISIT DATE: 01/17/2019 DISCHARGE DATE: 01/17/19 1206 VISIT LOCKED DATE TIME: PHYSICIAN: JOYCE JORGENSEN MD RESOURCE: JOYCE JORGENSEN MD REASON FOR APPOINTMENT 1. LUMBAR STENOSIS HISTORY OF PRESENT ILLNESS HISTORY OF PRESENT ILLNESS: PAIN THE PATIENT DESCRIBES THE PAIN... 63 YEAR OLD FEMALE PATIENT WITH A HISTORY OF CHRONIC LOW BACK AND NECK PAIN. THE PATIENT DESCRIBES THE PAIN BURNING, TENDER, STABBING, SHOOTING, DAILY, AND CONTINUOUS WITH A PAIN SCORE OF 4-10/10 DEPENDING ON PHYSICAL ACTIVITY. THE PATIENT STATES HER LOW BACK PAIN BEGAN AROUND 4 YEARS AGO AND HAS BEEN AFFECTING HER ABILITY TO PERFORM HER DAILY ACTIVITIES SUCH CLEANING HER HOUSE, SLEEPING, AND SITTING. THE PATIENT SAYS SHE HAS A HISTORY OF NECK SURGERY, BUT THE PAIN STILL PERSISTS. THE PATIENT SAYS SHE HAS HAD PAST NECK INJECTIONS DONE THAT HAS OCCASIONALLY PROVIDED UP TO A YEAR OF PAIN RELIEF FOR HER. THE PATIENT STATES HER MAIN CONCERN IS THE LOW BACK PAIN THAT IS CONSTANT AND THE WORST. PATIENT DENIES UNEXPLAINABLE WEIGHT LOSS, FEVER, CHILLS, NEW CHANGES ON HER URINARY OR BOWEL CONTROL. THE PATIENT MENTIONS SHE HAS BEEN EXPERIENCING URINARY URGENCY. FALL RISK SCREENING: SCREENING :NO FALLS REPORTED IN THE LAST YEAR CURRENT MEDICATIONS TAKING ADVAIR DISKUS 250-50 MCG/DOSE AEROSOL POWDER BREATH ACTIVATED 1 PUFF INHALATION TWICE A DAY TAKING ALBUTEROL SULFATE HFA 108 (90 BASE) MCG/ACT AEROSOL SOLUTION 2 PUFFS NEEDED INHALATION EVERY 6 HRS TAKING CYMBALTA 60 MG CAPSULE DELAYED RELEASE PARTICLES 1 CAPSULE ORALLY ONCE A DAY TAKING MULTIVITAMINS OTC CAPSULE 1 TABLET ORALLY ONCE A DAY TAKING BENADRYL 25 MG CAPSULE 1 CAPSULE ORALLY TWICE A DAY NEEDED TAKING TYLENOL 325 MG TABLET 2 TABLETS NEEDED ORALLY EVERY 6 HRS TAKING ASPIRIN 81 MG TABLET CHEWABLE 1 TABLET ORALLY ONCE DAILY TAKING MAXALT 10 MG TABLET 1 TABLET NEEDED ONE TIME ORALLY ONCE A DAY TAKING EPIPEN 2-JAKE 0.3 MG/0.3ML (1:1000) DEVICE INJECTION INTRAMUSCULAR NEEDED TAKING CYCLOBENZAPRINE HCL 10 MG TABLET 1 TABLET NEEDED ORALLY THREE TIMES A DAY TAKING DRISDOL 43389 UNIT CAPSULE 1 CAPSULE ORALLY ONCE WEEKLY TAKING SYNTHROID 175 MCG TABLET 1 TABLET ON AN EMPTY STOMACH IN THE MORNING ORALLY ONCE A DAY TAKING STRIVERDI RESPIMAT 2.5 MCG/ACT AEROSOL SOLUTION 2 PUFFS INHALATION ONCE A DAY TAKING GABAPENTIN 400 MG CAPSULE 1 CAPSULE ORALLY FOUR TIMES DAILY NOT-TAKING VITAMIN D 2000 UNIT TABLET 1 CAPSULE ORALLY ONCE A DAY NOT-TAKING FLUTICASONE-SALMETEROL 250-50 MCG/DOSE AEROSOL POWDER BREATH ACTIVATED 1 PUFF INHALATION TWICE A DAY DISCONTINUED ZOLOFT 50 MG TABLET 1 TABLET ORALLY QD DIRECTED WEAN OFF UNTIL CYMBALTA IA APPROVED. DISCONTINUED ZOLOFT 100 MG TABLET 1 TABLET ORALLY ONCE A DAY MEDICATION LIST REVIEWED AND RECONCILED WITH THE PATIENT PAST MEDICAL HISTORY DEPRESSION ANXIETY GERD HYPOTHYROID INSOMNIA L4 FX, MILD CENTRAL CANAL STENOSIS L4-5 SEIZURE DISORDER: EEG X 2 NML- NCN FOLLOWING MIGRANE WITH AURA 3 MM LEFT INTERNAL CAROTID ARTERY 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 LAN AT [facility] 02/23/16 COLONOSCOPY: SUBOPTIMAL PREP: REPEAT IN 2 YEARS 07/2016 EGD: [facility] NOTED: S/P DILATION: DR. LORENZO 07/2016 1978 FAMILY HISTORY FATHER: 76 YRS, END STAGE RENAL FAILURE, ALZHEIMERS, DIAGNOSED WITH DIABETES, UNSPECIFIED HEART DISEASE MOTHER: ALIVE 81 YRS, ESRD, HTN, HYPOTHYROIDISM, HYPERTENSION SIBLINGS: 2 SISTERS IN A FIRE, BROTHER HAD DIABETES, 1 SISTER OF COLON CA, DIABETES DAUGHTER(S): DGTR HAS HEART CONDITION 2 BROTHER(S) , 4 SISTER(S) . 1 SON(S) , 2 DAUGHTER(S) - HEALTHY. 1\\\/2 MATERNAL SISTER AT AGE 55 WITH STOMACH CANCER\\NPATERNAL AUNT : STOMACH CANCER\\N. SOCIAL HISTORY GENERAL: TOBACCO USE ARE YOU A:NONSMOKER HIV / HEP-C SCREENING HIV TEST OFFERED TO PATIENT:YES DATE OFFERED:12/04/2017 TEST ACCEPTED:NO HEP-C TEST OFFERED TO PATIENT:YES DATE OFFERED:12/04/2017 REASON:PATIENT DECLINED TEST ACCEPTED:NO REASON:PATIENT DECLINED BROCHURE PROVIDED TO PATIENTYES DECLINED WHEN OFFERED OTHERS AT HOME: ANTHONY MAURER. HOUSING: RENTS APARTMENT. 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 ADDITIONAL COLLEGE HOURS DIET: REGULAR. LANGUAGE LANGUAGES SPOKEN:CAMEROONIAN DOMESTIC VIOLENCE DO YOU FEEL SAFE IN YOUR ENVIRONMENT?YES BMI CARE GOAL FOLLOW-UP ABOVE NORMAL BMI FOLLOW-UPLIFESTYLE EDUCATION REGARDING DIET RECREATIONAL DRUG USE DENIES. EXERCISE: NO REGULAR EXERCISE. 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 NEEDED?NO PAIN CLINIC PFS, CLERGY, PUBLIC HEALTH REFERRALS HAS THE PATIENT BEEN EDUCATED REGARDING HIS/HER PLAN OF CARE?YES HAS THE PATIENT BEEN EDUCATED REGARDING PAIN, THE RISK FOR PAIN, THE IMPORTANCE OF EFFECTIVE PAIN MANAGEMENT, AND THE PAIN ASSESSMENT PROCESS?YES LATEX QUESTIONNAIRE LATEX ALLERGY : HAVE YOU EVER DEVELOPED ANY TYPE OF REACTION AFTER HANDLING LATEX PRODUCTS SUCH RUBBER GLOVES, CONDOMS, DIAPHRAGMS, BALLOONS, SOCKS, OR UNDERWEAR?NO LATEX ALLERGY : HAVE YOU EVER DEVELOPED ANY TYPE OF REACTION DURING OR AFTER DENTAL APPOINTMENT, VAGINAL/RECTAL EXAMINATION, SURGICAL PROCEDURE, OR ANY OTHER EXPOSURE?NO DATE ASKED : 07/19/2018 LATEX RISK : HAVE YOU EVER HAD ANY DIFFICULTY BREATHING OR HIVES AFTER EATING OR HANDLING ANY FRUITS, OR VEGETABLES; SUCH KIWI, BANANAS, STONE FRUITS, OR CHESTNUTSNO LATEX RISK : DO YOU HAVE A PREVIOUS PERSONAL HISTORY OF MORE THAN NINE SURGERIES, SPINA BIFIDA, OR REPEATED CATHERIZATIONS? NO LATEX RISK : ARE YOU FREQUENTLY EXPOSED TO LATEX PRODUCTS IN YOUR OCCUPATION?NO CAFFEINE CAFFEINE USE?YES OCCASIONAL SODA OR TEA ADVANCE DIRECTIVE ADVANCE DIRECTIVE DISCUSSED WITH PATIENT:YES DECLINED JEW [id number] RELIGIOUS MARITAL STATUS: .. ALCOHOL SCREENING POINTS: 1, INTERPRETATION: NEGATIVE. 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. SEXUAL HX HAD SEX IN THE LAST 12 MONTHS (VAGINAL, ORAL, OR ANAL)?YES WITHMEN ONLY USE PROTECTION?NO HAVE YOU EVER HAD AN STD?NO HOSPITALIZATION/MAJOR DIAGNOSTIC PROCEDURE SURGERY RELATED REVIEW OF SYSTEMS REVIEWED BY: PROVIDER: JOYCE JORGENSEN MD . CONSTITUTIONAL: ANY CHANGE IN YOUR MEDICAL CONDITION? NO . CHILLS NO . FEVER NO . INFECTION: DO YOU HAVE NEW INFECTIONS? NO . DO YOU HAVE HISTORY OF MRSA? NO . MUSCULOSKELETAL: ANY NEW PATTERNS OF PAIN OR NUMBNESS? NO . GASTROENTEROLOGY: ANY NEW CHANGE IN BOWEL CONTROL? NO . GENITOURINARY: ANY NEW CHANGE IN BLADDER CONTROL? YES, FREQUENCY, ABOUT 50% OF TIME CAN'T MAKE IT TO TOILET ON TIME, PT HAS APPT W PCP TO ADDRESS THIS . IS THERE A CHANCE YOU COULD BE ? NO . HEMATOLOGY/LYMPH: DO YOU TAKE ANY BLOOD THINNERS? (FOR EXAMPLE- COUMADIN, PLAVIX, AGGRENOX, PLATEL, PRADAXA, OR XARELTO) NO . WHEN WAS YOUR LAST DOSE? DATE: TIME: . NEUROLOGY: HAVE YOU FALLEN IN THE PAST 12 MONTHS? YESFELL LAST MONTH FROM LOSS OF BALANCE, PT DENIES INJURIES . ANY NEW EXTREMITY NUMBNESS OR WEAKNESS? NO . CARDIOLOGY: DO YOU HAVE A PACEMAKER OR DEFIBRILLATOR? NO . RESPIRATORY: HAVE YOU BEEN SICK IN THE PAST WEEK? YES, ASTHMA EXACERBATION . FEVER NO . FLU LIKE SYMPTOMS? NO . COUGH NO . INTEGUMENTARY: DO YOU HAVE ANY RASHES OR OPEN SORES? NO . ALLERGIC/IMMUNO: ARE YOU ALLERGIC TO IV DYE? NO . ANY NEW ALLERGIES? NO . PSYCHIATRIC: DO YOU HAVE THOUGHTS OF HURTING YOURSELF OR SOMEONE ELSE? NO . ARE YOU ABUSED, NEGLECTED, OR IN AN UNSAFE ENVIRONMENT? NO . ENDOCRINOLOGY: ARE YOU DIABETIC? NO . OTHER: DO YOU NEED ANY PRESCRIPTIONS? NO . IF YES, PLEASE LIST: ____ . ANY NEW PROBLEMS WITH YOUR MEDICATIONS? NO . WHEN DID YOU LAST EAT? ____ . WHEN DID YOU LAST DRINK? ____ . WHAT DID YOU LAST DRINK? ____ . NAME OF PERSON DRIVING YOU HOME? ____ . DO YOU HAVE ANY OTHER QUESTIONS OR CONCERNS NO . VITAL SIGNS WT 189.8 LBS, HT 68 IN, BMI 28.86 INDEX, BP 126/72 MM HG, HR 77 /MIN, RR 18 /MIN, TEMP 97.9 F, OXYGEN SAT % 96%, NA INITIALS SC 10:41, REVIEWED BY: EM. EXAMINATION GENERAL EXAMINATION: PATIENT IS ALERT O X 3 AND COOPERATIVE. LUNGS CLEAR, TO AUSCULTATION. HEART: NO MURMURS OR GALLOPS; FACIAL CRANIAL NERVES ARE GROSSLY NORMAL. GOOD SYMMETRY OF FACIAL MUSCLE MOVEMENT. NORMAL VISUAL BATES. ANTALGIC WALK. PATIENT IS LIMPING FROM THE RIGHT LEG. TENDERNESS IN THE RIGHT LOWER BACK AREA OF THE PARASPINAL MUSCLE GROUP. PRESENCE OF BANDS OF TISSUE AND TRIGGER POINTS WITH RESTRICTION OF MOVEMENT OF THE LOW BACK. RIGHT LEG IS WEAKER AT EXTENSION AND FLEXION. STRAIGHT LEG RAISE OF THE RIGHT LEG IS POSITIVE AT 40 DEGREES FOR RADICULOPATHY. MRI OF THE LUMBAR SPINE DONE ON 09/18/2014 SHOWS HISTORY OF RIGHT L4 TRANSVERSE PROCESS FRACTURE, CANAL STENOSIS, BULGING DISC, AND FACET ARTHROPATHY CHANGES AT MULTIPLE LEVELS. 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 TREATMENT INTERVERTEBRAL DISC DISORDERS WITH RADICULOPATHY, LUMBAR REGION CLINICAL NOTES: WE DISCUSSED SEVERAL ISSUES WITH MS. VIRGIL LONG' PAIN MANAGEMENT CASE. DUE TO THE TRIGGER POINTS, BANDS OF TISSUE, AND RESTRICTION OF MOVEMENT, I WOULD LIKE TO MOVE FORWARD WITH LOW BACK TRIGGER POINT INJECTIONS AT THIS TIME. WE DISCUSSED THE BENEFITS, RISKS, AND ALTERNATIVES OF THE INJECTION AND THE PATIENT WOULD LIKE TO PROCEED. I AM LOOKING FOR LONG LASTING PAIN RELIEF FROM THIS INJECTION FOR THE PATIENT. I AM ALSO REQUESTING FOR AN UPDATED LUMBAR SPINE MRI TO BE PERFORMED AND TO COMPARE WITH THE MRI DONE ON 09/18/2104. THE PATIENT WILL FOLLOW UP IN SEVERAL WEEKS AFTER THE INJECTION. INSTRUCTIONS WERE GIVEN, QUESTIONS WERE ANSWERED, PATIENT REPORTS UNDERSTANDING AND AGREES WITH THE PLAN. I, SHAKIR OWEN, DOCUMENTED THE ABOVE INFORMATION ACTING A SCRIBE FOR DR. JORGENSEN. I HAVE REVIEWED THE ABOVE DOCUMENT, WRITTEN BY SHAKIR MATTHEWS AND I VERIFY THAT IT IS ACCURATE. DEAR ASHLEY MACIAS, ANP: THANK YOU FOR YOUR KIND REFERRAL OF EARLENE LONG. IF YOU WANT TO DISCUSS HER CASE WITH ME PLEASE CALL ME AT THE PAIN CENTER AT [phone]. SINCERELY, JOYCE JORGENSEN MD PAIN MEDICINE . OTHERS NOTES: TRIGGER POINT INJECTION HOME CARE, OPTIONS: TRIGGER POINT INJECTION, OPTIONS: TRIGGER POINT INJECTIONS MATERIAL WAS PUBLISHED TO [employer],OPTIONS: TRIGGER POINT INJECTION MATERIAL WAS PRINTED,TRIGGER POINT INJECTION HOME CARE MATERIAL WAS PRINTED. PREVENTIVE MEDICINE PAIN CLINIC TEACHING: PROCEDURE TEACHING PRE TRIGGER POINT INJECTION INSTRUCTIONS REVIEWE WITH PT. VERBALIZED UNDERSTANDING.. PROCEDURE CODES FA211 ESTABILISHED PATIENT [facility] FACILITY CHARGE G8427 CURRENT MEDS W/DOSAGES DOCUMENTED G8730 PAIN ASSESS POS TOOL F/U PLAN DOC DISPOSITION & COMMUNICATION FOLLOW UP REASON: LS MRI/LB TPI ELECTRONICALLY SIGNED BY JOYCE JORGENSEN MD, MD ON 02/02/2019 AT 04:46 PM EDT DISCLAIMER : THIS IS A VISIT SUMMARY EXTRACTED FROM THE [employer] CHART. IT IS NOT A COPY OF THE [employer] PROGRESS NOTE. DONAVAN
== END ==
LOC: M PAIN 10:30
PROVIDERS: ATTEND Anesthesiology
DX: M51.16 Intervertebral disc disorders with radiculopathy, lumbar region (principal); M47.816 Spondylosis without myelopathy or radiculopathy, lumbar region; M48.061 Spinal stenosis, lumbar region without neurogenic claudication; G89.29 Other chronic pain; Z86.59 Personal history of other mental and behavioral disorders; E03.9 Hypothyroidism, unspecified; G47.00 Insomnia, unspecified; G43.109 Migraine with aura, not intractable, without status migrainosus; Z88.1 Allergy status to other antibiotic agents; Z88.8 Allergy status to other drugs, medicaments and biological substances; Z79.82 Long term (current) use of aspirin; Z79.899 Other long term (current) drug therapy

== ENCOUNTER 2019-04-24 11:13 | Emergency (ER) | payer OTHER ==
[~2019-04-24 11:13] MED LIST changes: -PANT20TA2 PO; -SUCR1ORA PO; +SUCR1SUS PO
[2019-04-24] MEDS ORDERED: PANT20TA2 PO (11:37)
--- NOTE | 2019-04-24 12:00 | REP ---
Clinical: Pain. Technique: Neutral and frog lateral views of the right hip. Findings: No acute fracture dislocation. Skeletal structures, joint spaces, and surrounding soft tissues appear normal. Impression: Normal age-appropriate right hip radiographs. Electronically Signed by Alexander Riggs MD 04/24/2019 11:52 A
[2019-04-24] MEDS ORDERED: MORPHINE 10 MG/ML 1ML VIAL (J2270) IM ONE (12:30)
--- NOTE | 2019-04-24 13:11 | REP ---
Clinical: Trauma with lower back pain . Technique: AP, lateral, bilateral oblique, and coned-down views. Findings: Alignment and lordosis is maintained. The vertebral bodies including transverse process and spinous processes are intact and normal. There is no evidence for acute fracture / compression injury or subluxation. No evidence for spondylolysis or spondylolisthesis. No significant degenerative change is noted. Impression: Normal lumbosacral spine radiograph series. Electronically Signed by Alexander Riggs MD 04/24/2019 01:02 P
[2019-04-24] MEDS ORDERED: CYCL10TA PO (13:37)
[2019-04-24 13:57] VITALS: BP 143/80
== END 2019-04-24 13:59 | disposition home or self-care (01) ==
LOC: M ED 11:13 → EDBD 11:13 → M ED 13:59
DX: M54.5 Low back pain (principal); M25.551 Pain in right hip; F32.9 Major depressive disorder, single episode, unspecified; F41.9 Anxiety disorder, unspecified; K21.9 Gastro-esophageal reflux disease without esophagitis; E03.9 Hypothyroidism, unspecified; Z88.2 Allergy status to sulfonamides; Z88.8 Allergy status to other drugs, medicaments and biological substances
CPT/HCPCS: 72110; 73502; 96372; 99284; J2270

== ENCOUNTER → 2019-05-02 | Outpatient (CLI) | payer OTHER ==
[~2019-05-02] MED LIST changes: +PANT20TA2 PO
--- NOTE | 2019-05-06 00:25 | ECWPNPC ---
PATIENT NAME: EARLENE ROMAN : 1955 GENDER: FEMALE VISIT DATE: 05/02/2019 DISCHARGE DATE: 05/02/19954 VISIT LOCKED DATE TIME: PHYSICIAN: KRYSTYNA DONATO RESOURCE: KRYSTYNA DONATO REASON FOR APPOINTMENT 1. 30MIN [facility]-LUMBAR STENOSIS HISTORY OF PRESENT ILLNESS HISTORY OF PRESENT ILLNESS: PAIN THE PATIENT DESCRIBES THE PAIN... 64-YEAR-OLD FEMALE IN FOR CHRONIC PAIN FOLLOW-UP. SHE WAS SEEN IN CLINIC BY DR. JORGENSEN AND AN MRI AND TRIGGER POINT INJECTIONS WERE ORDERED HOWEVER PATIENT WAS UNABLE TO GET THE PROCEDURE DONE DUE TO ILLNESS AND THE MRI WAS NOT COMPLICATED EITHER. SHE RATES HER PAIN CURRENTLY AT A 5 OUT OF 10 AND DESCRIBES IT ACHING, BURNING, AND SHOOTING. FALL RISK SCREENING: SCREENING :NO FALLS REPORTED IN THE LAST YEAR CURRENT MEDICATIONS TAKING ADVAIR DISKUS 250-50 MCG/DOSE AEROSOL POWDER BREATH ACTIVATED 1 PUFF INHALATION DAILY TAKING ALBUTEROL SULFATE HFA 108 (90 BASE) MCG/ACT AEROSOL SOLUTION 2 PUFFS NEEDED INHALATION EVERY 6 HRS TAKING MULTIVITAMINS OTC CAPSULE 1 TABLET ORALLY ONCE A DAY TAKING BENADRYL 25 MG CAPSULE 1 CAPSULE ORALLY TWICE A DAY NEEDED TAKING TYLENOL 325 MG TABLET 2 TABLETS NEEDED ORALLY EVERY 6 HRS TAKING ASPIRIN 81 MG TABLET CHEWABLE 1 TABLET ORALLY ONCE DAILY TAKING MAXALT 10 MG TABLET 1 TABLET NEEDED ONE TIME ORALLY ONCE A DAY TAKING EPIPEN 2-JAKE 0.3 MG/0.3ML (1:1000) DEVICE INJECTION INTRAMUSCULAR NEEDED TAKING CYCLOBENZAPRINE HCL 10 MG TABLET 1 TABLET NEEDED ORALLY THREE TIMES A DAY TAKING GABAPENTIN 400 MG CAPSULE 1 CAPSULE ORALLY FOUR TIMES DAILY TAKING SYNTHROID 175 MCG TABLET 1 TABLET ON AN EMPTY STOMACH IN THE MORNING ORALLY ONCE A DAY TAKING CYMBALTA 60 MG CAPSULE DELAYED RELEASE PARTICLES 1 CAPSULE ORALLY ONCE A DAY TAKING DRISDOL 50273 UNIT CAPSULE 1 CAPSULE ORALLY ONCE WEEKLY NOT-TAKING STRIVERDI RESPIMAT 2.5 MCG/ACT AEROSOL SOLUTION 2 PUFFS INHALATION ONCE A DAY NOT-TAKING VITAMIN D 2000 UNIT TABLET 1 CAPSULE ORALLY ONCE A DAY NOT-TAKING FLUTICASONE-SALMETEROL 250-50 MCG/DOSE AEROSOL POWDER BREATH ACTIVATED 1 PUFF INHALATION TWICE A DAY MEDICATION LIST REVIEWED AND RECONCILED WITH THE PATIENT PAST MEDICAL HISTORY DEPRESSION ANXIETY GERD HYPOTHYROID INSOMNIA L4 FX, MILD CENTRAL CANAL STENOSIS L4-5 SEIZURE DISORDER: EEG X 2 NML- NCN FOLLOWING MIGRANE WITH AURA 3 MM LEFT INTERNAL CAROTID ARTERY 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 LAN AT [facility] 02/23/16 COLONOSCOPY: SUBOPTIMAL PREP: REPEAT IN 2 YEARS 07/2016 EGD: [facility] NOTED: S/P DILATION: DR. LORENZO 07/2016 1978 FAMILY HISTORY FATHER: 76 YRS, END STAGE RENAL FAILURE, ALZHEIMERS, DIAGNOSED WITH DIABETES, UNSPECIFIED HEART DISEASE MOTHER: ALIVE 81 YRS, ESRD, HTN, HYPOTHYROIDISM, HYPERTENSION SIBLINGS: 2 SISTERS IN A FIRE, BROTHER HAD DIABETES, 1 SISTER OF COLON CA, DIABETES DAUGHTER(S): DGTR HAS HEART CONDITION 2 BROTHER(S) , 4 SISTER(S) . 1 SON(S) , 2 DAUGHTER(S) - HEALTHY. 1\\\\\\/2 MATERNAL SISTER AT AGE 55 WITH STOMACH CANCER\\\\NPATERNAL AUNT : STOMACH CANCER\\\\N. SOCIAL HISTORY GENERAL: TOBACCO USE ARE YOU A:NONSMOKER HIV / HEP-C SCREENING HIV TEST OFFERED TO PATIENT:YES DATE OFFERED:12/04/2017 TEST ACCEPTED:NO HEP-C TEST OFFERED TO PATIENT:YES DATE OFFERED:12/04/2017 REASON:PATIENT DECLINED TEST ACCEPTED:NO REASON:PATIENT DECLINED BROCHURE PROVIDED TO PATIENTYES DECLINED WHEN OFFERED OTHERS AT HOME: ERASTO, ANTHONY. HOUSING: RENTS APARTMENT. 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 ADDITIONAL COLLEGE HOURS DIET: REGULAR. LANGUAGE LANGUAGES SPOKEN:IRISH DOMESTIC VIOLENCE DO YOU FEEL SAFE IN YOUR ENVIRONMENT?YES BMI CARE GOAL FOLLOW-UP ABOVE NORMAL BMI FOLLOW-UPLIFESTYLE EDUCATION REGARDING DIET RECREATIONAL DRUG USE DENIES. EXERCISE: NO REGULAR EXERCISE. 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 NEEDED?NO PAIN CLINIC PFS, CLERGY, PUBLIC HEALTH REFERRALS HAS THE PATIENT BEEN EDUCATED REGARDING HIS/HER PLAN OF CARE?YES HAS THE PATIENT BEEN EDUCATED REGARDING PAIN, THE RISK FOR PAIN, THE IMPORTANCE OF EFFECTIVE PAIN MANAGEMENT, AND THE PAIN ASSESSMENT PROCESS?YES LATEX QUESTIONNAIRE LATEX ALLERGY : HAVE YOU EVER DEVELOPED ANY TYPE OF REACTION AFTER HANDLING LATEX PRODUCTS SUCH RUBBER GLOVES, CONDOMS, DIAPHRAGMS, BALLOONS, SOCKS, OR UNDERWEAR?YES HAND RASH LATEX ALLERGY : HAVE YOU EVER DEVELOPED ANY TYPE OF REACTION DURING OR AFTER DENTAL APPOINTMENT, VAGINAL/RECTAL EXAMINATION, SURGICAL PROCEDURE, OR ANY OTHER EXPOSURE?NO LATEX RISK : HAVE YOU EVER HAD ANY DIFFICULTY BREATHING OR HIVES AFTER EATING OR HANDLING ANY FRUITS, OR VEGETABLES; SUCH KIWI, BANANAS, STONE FRUITS, OR CHESTNUTSNO LATEX RISK : DO YOU HAVE A PREVIOUS PERSONAL HISTORY OF MORE THAN NINE SURGERIES, SPINA BIFIDA, OR REPEATED CATHERIZATIONS? NO LATEX RISK : ARE YOU FREQUENTLY EXPOSED TO LATEX PRODUCTS IN YOUR OCCUPATION?NO DATE ASKED : 07/19/2018 CAFFEINE CAFFEINE USE?YES OCCASIONAL SODA OR TEA ADVANCE DIRECTIVE ADVANCE DIRECTIVE DISCUSSED WITH PATIENT:YES STATES IS WORKING ON THIS, DECLINES INFORMATION OR ASSISTANCE AT THIS TIME 05/02/2019 SIKH [id number] AMISH MARITAL STATUS: .. ALCOHOL SCREENING POINTS: 1, INTERPRETATION: NEGATIVE. 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 SUBS. SEXUAL HX HAD SEX IN THE LAST 12 MONTHS (VAGINAL, ORAL, OR ANAL)?YES WITHMEN ONLY USE PROTECTION?NO HAVE YOU EVER HAD AN STD?NO REVIEWED WITH PATIENT 05/02/2019 LAS. HOSPITALIZATION/MAJOR DIAGNOSTIC PROCEDURE SURGERY RELATED REVIEW OF SYSTEMS REVIEWED BY: PROVIDER: AKOSUA BRIGHT . CONSTITUTIONAL: ANY CHANGE IN YOUR MEDICAL CONDITION? NO . CHILLS NO . FEVER NO . INFECTION: DO YOU HAVE NEW INFECTIONS? NO . DO YOU HAVE HISTORY OF MRSA? NO . MUSCULOSKELETAL: ANY NEW PATTERNS OF PAIN OR NUMBNESS? YES PT REPORTS PAIN "SHOOTS THROUGH" FROM HER BACK THROUGH HER ABDOMEN TO FRONT . GASTROENTEROLOGY: ANY NEW CHANGE IN BOWEL CONTROL? YES REPORTS INCREASE IN URGENCY, TO SEE PRIMARY . GENITOURINARY: ANY NEW CHANGE IN BLADDER CONTROL? YES PT REPORTS INCREASE URGENCY/STRESS INCONTINENCE, TO SEE HER PRIMARY . IS THERE A CHANCE YOU COULD BE ? NO . HEMATOLOGY/LYMPH: DO YOU TAKE ANY BLOOD THINNERS? (FOR EXAMPLE- COUMADIN, PLAVIX, AGGRENOX, PLATEL, PRADAXA, OR XARELTO) NO . WHEN WAS YOUR LAST DOSE? DATE: TIME: . NEUROLOGY: HAVE YOU FALLEN IN THE PAST 12 MONTHS? YES PT REPORTS SHE SLIPPED ON ICE/TWISTED ON 04/20, AND FELL 04/24 HER LEG "GAVE OUT" AND SHE FELL GOING UP STAIRS, WENT TO ED, DIAGNOSED WITH CHRONIC PAIN PER PATIENT, AND THEY DID XRAYS OF BACK AND HIP, TREATED WITH MUSCLE RELAXANTS AND MORPHINE PER PATIENT . ANY NEW EXTREMITY NUMBNESS OR WEAKNESS? YES LEG "GAVE OUT" . CARDIOLOGY: DO YOU HAVE A PACEMAKER OR DEFIBRILLATOR? NO . RESPIRATORY: HAVE YOU BEEN SICK IN THE PAST WEEK? YES PT REPORTS SHE HAS HAD A COUGH FOR 4 WEEKS, FEELS IT IS RESOLVING, TO SEE HER PRIMARY . FEVER NO . FLU LIKE SYMPTOMS? NO . COUGH NO . INTEGUMENTARY: DO YOU HAVE ANY RASHES OR OPEN SORES? NO . ALLERGIC/IMMUNO: ARE YOU ALLERGIC TO IV DYE? NO . ANY NEW ALLERGIES? NO . PSYCHIATRIC: DO YOU HAVE THOUGHTS OF HURTING YOURSELF OR SOMEONE ELSE? NO . ARE YOU ABUSED, NEGLECTED, OR IN AN UNSAFE ENVIRONMENT? NO . ENDOCRINOLOGY: ARE YOU DIABETIC? NO . OTHER: DO YOU NEED ANY PRESCRIPTIONS? NO . IF YES, PLEASE LIST: ____ . ANY NEW PROBLEMS WITH YOUR MEDICATIONS? NO . WHEN DID YOU LAST EAT? ____ . WHEN DID YOU LAST DRINK? ____ . WHAT DID YOU LAST DRINK? ____ . NAME OF PERSON DRIVING YOU HOME? ____ . DO YOU HAVE ANY OTHER QUESTIONS OR CONCERNS NO . VITAL SIGNS WT 194.0 LBS, HT 68 IN, BMI 29.49 INDEX, BP 129/75 MM HG, HR 89 /MIN, RR 18 /MIN, TEMP 97.3 F, OXYGEN SAT % 96%, SAFE IN ENV? (Y/N) YES, NA INITIALS AW 0909, REVIEWED BY: AMBROCIO. EXAMINATION GENERAL EXAMINATION: GENERALNO ACUTE DISTRESS, WELL NOURISHED AND HYDRATED. PSYCHAPPROPRIATE MOOD AND AFFECT . LUNGS:CLEAR TO AUSCULTATION BILATERALLY, NO WHEEZES, RHONCHI, RALES. HEART:NO MURMURS, REGULAR RATE AND RHYTHM. BACK:POINT TENDER LOW BACK, SURROUNDING SKIN SHOWS NO ERYTHEMA, ECCHYMOSIS, INCREASED WARMTH, AND/OR SKIN ERUPTIONS NOTED. . ASSESSMENTS INTERVERTEBRAL DISC DISORDERS WITH RADICULOPATHY, LUMBAR REGION - M51.16 (PRIMARY) MYALGIA, OTHER SITE - M79.18 TREATMENT INTERVERTEBRAL DISC DISORDERS WITH RADICULOPATHY, LUMBAR REGION REFILL CYCLOBENZAPRINE HCL TABLET, 10 MG, 1 TABLET NEEDED, ORALLY, THREE TIMES A DAY, 30, 90 TABLET, REFILLS 0 [facility] MRI LUMBAR W/O CONTRAST (CPT [id number] CLINICAL NOTES: 64-YEAR-OLD FEMALE IN FOR CHRONIC PAIN FOLLOW-UP. GIVEN PRESENTING SYMPTOMS AND RESULTS OF PHYSICAL EXAMINATION RECOMMENDED TPI OF THE LOW BACK, AND MRI OF THE LUMBAR SPINE. PATIENT HAS EXPRESSED UNDERSTANDING OF AND WAS IN AGREEMENT WITH TREATMENT PLAN. GIVEN TIME TO ASK QUESTIONS AND EXPRESS CONCERNS. PREVENTIVE MEDICINE PAIN CLINIC TEACHING: MEDICATIONS INFORMATION HANDOUT FOR CYCLOBENZAPRINE PRINTED AND REVIEWED WITH PATIENT, PATIENT VERBALIZES UNDERSTANDING. 05/02/2019 LAS. PROCEDURE TEACHING TRIGGER POINT INJECTIONS PROCEDURE REVIEWED, PRE PROCEDURE INSTRUCTIONS PRINTED AND REVIEWED WITH PATIENT. 05/02/2019 LAS. PROCEDURE CODES [id number] ESTABILISHED PATIENT [facility] CHARGE DISPOSITION & COMMUNICATION FOLLOW UP POST PROCEDURE (REASON: TPI LOW BACK, MRI LUMBAR SPINE) ELECTRONICALLY SIGNED BY NICOLE ESPOSITO ON 05/05/2019 AT 08:13 AM EST DISCLAIMER : THIS IS A VISIT SUMMARY EXTRACTED FROM THE [employer] CHART. IT IS NOT A COPY OF THE [employer] PROGRESS NOTE. [place]
== END ==
LOC: M PAIN 09:00
PROVIDERS: ATTEND Family Medicine
DX: M51.16 Intervertebral disc disorders with radiculopathy, lumbar region (principal); M79.18 Myalgia, other site

== ENCOUNTER → 2019-05-05 | Outpatient (REF) | payer OTHER ==
[2019-05-05 14:38] LABS: ALBUMIN 3.3 GM/DL (3.2-5.2); ALT/SGPT 19 U/L (12-78); BILIRUBIN,TOTAL 0.5 MG/DL (0.2-1.0); BLOOD UREA NITROGEN 12 MG/DL (7-18); CALCIUM LEVEL 9.4 MG/DL (8.8-10.2); CARBON DIOXIDE LEVEL 28 MEQ/L (21-32); CHLORIDE LEVEL 106 MEQ/L (98-107); CREATININE FOR GFR 0.96 MG/DL (0.55-1.30); GLOMERULAR FILTRATION RATE > 60.0 (>45); GLUCOSE, FASTING 101 MG/DL (70-100); POTASSIUM SERUM 4.6 MEQ/L (3.5-5.1); SODIUM LEVEL 141 MEQ/L (136-145); THYROID STIMULATING HORMONE 0.643 uIU/ML (0.358-3.740)
[2019-05-05 14:43] LABS: TOTAL 25(OH) VITAMIN D 55.5 NG/ML (30.0-100.0)
== END ==
LOC: M SFHCPLAZ 11:40
PROVIDERS: ATTEND Nurse Practitioner Adult Health
DX: E03.9 Hypothyroidism, unspecified (principal); E55.9 Vitamin D deficiency, unspecified

== ENCOUNTER → 2019-06-03 | Outpatient (CLI) | payer OTHER ==
[~2019-06-03] MED LIST changes: +BUPIVACAINE HCL 0.25% 30 ML VIAL As Ordered ONE; +NORCO, ANEXSIA 5/325MG TABLET (HYDROcodone/ACETAMINOPHEN) As Ordered ONE; +SUCR1ORA PO; -SUCR1SUS PO; +TRIAMCINOLONE ACETONIDE SUSP 40 MG/ML VIAL (J3301) As Ordered ONE; +diazePAM 2 MG TAB As Ordered ONE
--- NOTE | 2019-06-13 05:00 | ECWPNPC ---
PATIENT NAME: EARLENE ROMAN : 1955 GENDER: FEMALE VISIT DATE: 06/03/2019 DISCHARGE DATE: 06/03/19 1248 VISIT LOCKED DATE TIME: PHYSICIAN: JOYCE JORGENSEN MD RESOURCE: JOYCE JORGENSEN MD REASON FOR APPOINTMENT 1. TPI LOW BACK HISTORY OF PRESENT ILLNESS HISTORY OF PRESENT ILLNESS: PAIN THE PATIENT DESCRIBES THE PAIN... FALL RISK SCREENING: SCREENING :NO FALLS REPORTED IN THE LAST YEAR CURRENT MEDICATIONS TAKING ADVAIR DISKUS 250-50 MCG/DOSE AEROSOL POWDER BREATH ACTIVATED 1 PUFF INHALATION DAILY, NOTES: 06/03/19 AM TAKING ALBUTEROL SULFATE HFA 108 (90 BASE) MCG/ACT AEROSOL SOLUTION 2 PUFFS NEEDED INHALATION EVERY 6 HRS, NOTES: 06/02/19 TAKING MULTIVITAMINS OTC CAPSULE 1 TABLET ORALLY ONCE A DAY, NOTES: 06/03/19 AM TAKING BENADRYL 25 MG CAPSULE 1 CAPSULE ORALLY TWICE A DAY NEEDED, NOTES: NONE LATELY TAKING TYLENOL 325 MG TABLET 2 TABLETS NEEDED ORALLY EVERY 6 HRS, NOTES: NONE LATELY TAKING ASPIRIN 81 MG TABLET CHEWABLE 1 TABLET ORALLY ONCE DAILY, NOTES: 06/03/19 AM TAKING MAXALT 10 MG TABLET 1 TABLET NEEDED ONE TIME ORALLY ONCE A DAY, NOTES: NONE LATELY TAKING EPIPEN 2-JAKE 0.3 MG/0.3ML (1:1000) DEVICE INJECTION INTRAMUSCULAR NEEDED, NOTES: NONE LATELY TAKING CYCLOBENZAPRINE HCL 10 MG TABLET 1 TABLET NEEDED ORALLY THREE TIMES A DAY, NOTES: NONE LATELY TAKING DRISDOL 95400 UNIT CAPSULE 1 CAPSULE ORALLY ONCE WEEKLY, NOTES: SUNDAY TAKING GABAPENTIN 400 MG CAPSULE 1 CAPSULE ORALLY FOUR TIMES DAILY, NOTES: 06/03/19 AM TAKING SYNTHROID 175 MCG TABLET 1 TABLET ON AN EMPTY STOMACH IN THE MORNING ORALLY ONCE A DAY, NOTES: 06/03/19 AM TAKING CYMBALTA 60 MG CAPSULE DELAYED RELEASE PARTICLES 1 CAPSULE ORALLY ONCE A DAY, NOTES: 06/03/19 AM NOT-TAKING STRIVERDI RESPIMAT 2.5 MCG/ACT AEROSOL SOLUTION 2 PUFFS INHALATION ONCE A DAY NOT-TAKING VITAMIN D 2000 UNIT TABLET 1 CAPSULE ORALLY ONCE A DAY NOT-TAKING FLUTICASONE-SALMETEROL 250-50 MCG/DOSE AEROSOL POWDER BREATH ACTIVATED 1 PUFF INHALATION TWICE A DAY MEDICATION LIST REVIEWED AND RECONCILED WITH THE PATIENT PAST MEDICAL HISTORY DEPRESSION ANXIETY GERD HYPOTHYROID INSOMNIA L4 FX, MILD CENTRAL CANAL STENOSIS L4-5 SEIZURE DISORDER: EEG X 2 NML- NCN FOLLOWING MIGRANE WITH AURA 3 MM LEFT INTERNAL CAROTID ARTERY 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 LAN AT [facility] 02/23/16 COLONOSCOPY: SUBOPTIMAL PREP: REPEAT IN 2 YEARS 07/2016 EGD: [employer] NOTED: S/P DILATION: DR. LORENZO 07/2016 1978 FAMILY HISTORY FATHER: 76 YRS, END STAGE RENAL FAILURE, ALZHEIMERS, DIAGNOSED WITH DIABETES, UNSPECIFIED HEART DISEASE MOTHER: ALIVE 81 YRS, ESRD, HTN, HYPOTHYROIDISM, HYPERTENSION SIBLINGS: 2 SISTERS IN A FIRE, BROTHER HAD DIABETES, 1 SISTER OF COLON CA, DIABETES DAUGHTER(S): DGTR HAS HEART CONDITION 2 BROTHER(S) , 4 SISTER(S) . 1 SON(S) , 2 DAUGHTER(S) - HEALTHY. 1\\\/2 MATERNAL SISTER AT AGE 55 WITH STOMACH CANCER\\NPATERNAL AUNT : STOMACH CANCER\\N. SOCIAL HISTORY GENERAL: TOBACCO USE ARE YOU A:NONSMOKER HIV / HEP-C SCREENING HIV TEST OFFERED TO PATIENT:YES DATE OFFERED:12/04/2017 TEST ACCEPTED:NO HEP-C TEST OFFERED TO PATIENT:YES DATE OFFERED:12/04/2017 REASON:PATIENT DECLINED TEST ACCEPTED:NO REASON:PATIENT DECLINED BROCHURE PROVIDED TO PATIENTYES DECLINED WHEN OFFERED OTHERS AT HOME: ANTHONY MAURER. HOUSING: RENTS APARTMENT. 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 ADDITIONAL COLLEGE HOURS DIET: REGULAR. LANGUAGE LANGUAGES SPOKEN:MALDIVIAN DOMESTIC VIOLENCE DO YOU FEEL SAFE IN YOUR ENVIRONMENT?YES BMI CARE GOAL FOLLOW-UP ABOVE NORMAL BMI FOLLOW-UPLIFESTYLE EDUCATION REGARDING DIET RECREATIONAL DRUG USE DENIES. EXERCISE: NO REGULAR EXERCISE. 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 GRAIN SPOUTER NEEDED?NO PAIN CLINIC PFS, CLERGY, PUBLIC HEALTH REFERRALS HAS THE PATIENT BEEN EDUCATED REGARDING HIS/HER PLAN OF CARE?YES HAS THE PATIENT BEEN EDUCATED REGARDING PAIN, THE RISK FOR PAIN, THE IMPORTANCE OF EFFECTIVE PAIN MANAGEMENT, AND THE PAIN ASSESSMENT PROCESS?YES LATEX QUESTIONNAIRE LATEX ALLERGY : HAVE YOU EVER DEVELOPED ANY TYPE OF REACTION AFTER HANDLING LATEX PRODUCTS SUCH RUBBER GLOVES, CONDOMS, DIAPHRAGMS, BALLOONS, SOCKS, OR UNDERWEAR?YES HAND RASH LATEX ALLERGY : HAVE YOU EVER DEVELOPED ANY TYPE OF REACTION DURING OR AFTER DENTAL APPOINTMENT, VAGINAL/RECTAL EXAMINATION, SURGICAL PROCEDURE, OR ANY OTHER EXPOSURE?NO DATE ASKED : 07/19/2018 LATEX RISK : HAVE YOU EVER HAD ANY DIFFICULTY BREATHING OR HIVES AFTER EATING OR HANDLING ANY FRUITS, OR VEGETABLES; SUCH KIWI, BANANAS, STONE FRUITS, OR CHESTNUTSNO LATEX RISK : DO YOU HAVE A PREVIOUS PERSONAL HISTORY OF MORE THAN NINE SURGERIES, SPINA BIFIDA, OR REPEATED CATHERIZATIONS? NO LATEX RISK : ARE YOU FREQUENTLY EXPOSED TO LATEX PRODUCTS IN YOUR OCCUPATION?NO CAFFEINE CAFFEINE USE?YES OCCASIONAL SODA OR TEA ADVANCE DIRECTIVE ADVANCE DIRECTIVE DISCUSSED WITH PATIENT:YES STATES IS WORKING ON THIS, DECLINES INFORMATION OR ASSISTANCE AT THIS TIME RESTORATION [id number] VOODOO MARITAL STATUS: .. ALCOHOL SCREENING POINTS: 1, INTERPRETATION: NEGATIVE. 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 SUBS. SEXUAL HX HAD SEX IN THE LAST 12 MONTHS (VAGINAL, ORAL, OR ANAL)?YES WITHMEN ONLY USE PROTECTION?NO HAVE YOU EVER HAD AN STD?NO REVIEWED WITH PATIENT 05/02/2019 LAS. HOSPITALIZATION/MAJOR DIAGNOSTIC PROCEDURE SURGERY RELATED [facility] BACK PAIN 04/14/19 REVIEW OF SYSTEMS REVIEWED BY: PROVIDER: . CONSTITUTIONAL: ANY CHANGE IN YOUR MEDICAL CONDITION? NO . CHILLS NO . FEVER NO . INFECTION: DO YOU HAVE NEW INFECTIONS? NO . DO YOU HAVE HISTORY OF MRSA? NO . MUSCULOSKELETAL: ANY NEW PATTERNS OF PAIN OR NUMBNESS? NO . GASTROENTEROLOGY: ANY NEW CHANGE IN BOWEL CONTROL? NO . GENITOURINARY: ANY NEW CHANGE IN BLADDER CONTROL? NO . IS THERE A CHANCE YOU COULD BE ? NO . HEMATOLOGY/LYMPH: DO YOU TAKE ANY BLOOD THINNERS? (FOR EXAMPLE- COUMADIN, PLAVIX, AGGRENOX, PLATEL, PRADAXA, OR XARELTO) NO . WHEN WAS YOUR LAST DOSE? DATE: TIME: . NEUROLOGY: HAVE YOU FALLEN IN THE PAST 12 MONTHS? YES . ANY NEW EXTREMITY NUMBNESS OR WEAKNESS? NO . CARDIOLOGY: DO YOU HAVE A PACEMAKER OR DEFIBRILLATOR? NO . RESPIRATORY: HAVE YOU BEEN SICK IN THE PAST WEEK? NO . FEVER NO . FLU LIKE SYMPTOMS? NO . COUGH YES - HAS RUNNY NOSE BUT DOES NOT FEEL AT ALL SICK. HAS A COUGH DUE TO HER ASTHMA. DR. JORGENSEN NOTIFIED. . INTEGUMENTARY: DO YOU HAVE ANY RASHES OR OPEN SORES? NO . ALLERGIC/IMMUNO: ARE YOU ALLERGIC TO IV DYE? NO . ANY NEW ALLERGIES? NO . PSYCHIATRIC: DO YOU HAVE THOUGHTS OF HURTING YOURSELF OR SOMEONE ELSE? NO . ARE YOU ABUSED, NEGLECTED, OR IN AN UNSAFE ENVIRONMENT? NO . ENDOCRINOLOGY: ARE YOU DIABETIC? NO . OTHER: DO YOU NEED ANY PRESCRIPTIONS? NO . IF YES, PLEASE LIST: ____ . ANY NEW PROBLEMS WITH YOUR MEDICATIONS? NO . WHEN DID YOU LAST EAT? 06-02-19 2200 . WHEN DID YOU LAST DRINK? 06-03-19 0730 . WHAT DID YOU LAST DRINK? WATER . NAME OF PERSON DRIVING YOU HOME? . DO YOU HAVE ANY OTHER QUESTIONS OR CONCERNS NO . VITAL SIGNS WT 186 LBS, HT 68 IN, BMI 28.28 INDEX, BP 143/91 MM HG, HR 80 /MIN, RR 18 /MIN, TEMP 97.5 F, OXYGEN SAT % 96%, NA INITIALS AW 0958, REVIEWED BY: DOMENIC. ASSESSMENTS MYALGIA, OTHER SITE - M79.18 (PRIMARY) PROCEDURES PN TRIGGER POINT INJECTION WITH STEROIDS PRE PROCEDURE DIAGNOSIS 1. MYALGIA 2. PAIN AT BILATERAL LOW BACK AREA. POST PROCEDURE DIAGNOSIS 1. MYALGIA 2. PAIN AT BILATERAL LOW BACK AREA. PROCEDURE TRIGGER POINT INJECTION AT BILATERAL LOW BACK AREA. SURGEON DR. JOYCE JORGENSEN REAL ESTATE FINANCIAL ANALYST NONE ANESTHESIA LOCAL PRE PROCEDURE NOTE THE PATIENT HAS A HISTORY OF CHRONIC PAIN AT THE RIGHT AND LEFT LOW BACK AREA. I EVALUATED THE PATIENT AND REVIEWED THE CHART. THERE IS EVIDENCE OF BANDS OF TISSUE WITH RESTRICTION OF MOVEMENT AND PRESENCE OF TRIGGER POINT AT THE AFFECTED AREA. I WENT OVER THE RISKS, ALTERNATIVES, AND BENEFITS ASSOCIATED WITH THIS PROCEDURE. THE PATIENT WOULD LIKE TO PROCEED AND GIVES CONSENT TO PERFORM THE PROCEDURE. THE PATIENT DENIES UNEXPLAINABLE WEIGHT LOSS, FEVER, CHILLS, OR NEW CHANGES IN URINARY OR BOWEL CONTROL DESCRIPTION OF PROCEDURE THE PATIENT WAS BROUGHT TO THE PROCEDURE ROOM AND PLACED IN THE SITTING POSITION. THE AREA WAS CLEANED WITH ALCOHOL. THE PROCEDURE WAS DONE USING ASEPTIC STERILE TECHNIQUE. I CHECKED LATERALITY AND THE LEVEL WHERE THE PROCEDURE WAS GOING TO BE PERFORMED WITH THE PATIENT AND THE SUPPORTING STAFF AT THE MOMENT OF THE TIME OUT IN THE PROCEDURE ROOM. USING A 25-GAUGE NEEDLE, TRIGGER POINTS WERE INJECTED AT THE RIGHT AND LEFT LOW BACK AREA WITH A TOTAL OF 40 ML OF BUPIVACAINE 0.25% AND KENALOG 40 MG. THERE WAS NO EVIDENCE OF BLOOD, PARESTHESIA OR CEREBROSPINAL FLUID DURING THE PROCEDURE. THE PATIENT WAS SENT TO THE RECOVERY ROOM. THE PATIENT WAS MOVING THE EXTREMITIES AND DOING WELL. THERE WAS NO COMPLICATION DURING THE PROCEDURE POST PROCEDURE NOTE THE PATIENT WILL BE SEEN IN A FOLLOW UP IN THE NEXT FEW WEEKS. I AM LOOKING FOR LONG LASTING PAIN RELIEF WITH THIS INJECTION. INSTRUCTIONS WERE GIVEN, QUESTIONS WERE ANSWERED, AND THE PATIENT EXPRESSED UNDERSTANDING AND AGREES WITH THE PLAN. I, SHAKIR OWEN, DOCUMENTED THE ABOVE INFORMATION ACTING A SCRIBE FOR DR. JORGENSEN. I HAVE REVIEWED THE ABOVE DOCUMENT, WRITTEN BY SHAKIR MATTHEWS AND I VERIFY THAT IT IS ACCURATE. PROCEDURE CODES 59393 INJ TRIGGER POINT / [facility] [place] DISPOSITION & COMMUNICATION FOLLOW UP 3 WEEKS ELECTRONICALLY SIGNED BY JOYCE JORGENSEN MD, MD ON 06/12/2019 AT 12:03 PM EST DISCLAIMER : THIS IS A VISIT SUMMARY EXTRACTED FROM THE [employer] CHART. IT IS NOT A COPY OF THE [employer] PROGRESS NOTE. DONAVAN
== END ==
LOC: M PAIN 09:45
PROVIDERS: ATTEND Anesthesiology
DX: M79.18 Myalgia, other site (principal); Z86.59 Personal history of other mental and behavioral disorders; E03.9 Hypothyroidism, unspecified; G47.00 Insomnia, unspecified; G43.109 Migraine with aura, not intractable, without status migrainosus; Z88.1 Allergy status to other antibiotic agents; Z88.8 Allergy status to other drugs, medicaments and biological substances; Z79.82 Long term (current) use of aspirin; Z79.899 Other long term (current) drug therapy
CPT/HCPCS: 20552; J3301

== ENCOUNTER → 2019-07-04 | Outpatient (CLI) | payer OTHER ==
[~2019-07-04] MED LIST changes: -BUPIVACAINE HCL 0.25% 30 ML VIAL As Ordered ONE; -NORCO, ANEXSIA 5/325MG TABLET (HYDROcodone/ACETAMINOPHEN) As Ordered ONE; -TRIAMCINOLONE ACETONIDE SUSP 40 MG/ML VIAL (J3301) As Ordered ONE; -diazePAM 2 MG TAB As Ordered ONE
--- NOTE | 2019-07-08 03:02 | ECWPNPC ---
PATIENT NAME: EARLENE ROMAN : 1955 GENDER: FEMALE VISIT DATE: 07/04/2019 DISCHARGE DATE: 07/04/19 1516 VISIT LOCKED DATE TIME: PHYSICIAN: KRYSTYNA DONATO RESOURCE: KRYSTYNA DONATO REASON FOR APPOINTMENT 1. POST TPI HISTORY OF PRESENT ILLNESS HISTORY OF PRESENT ILLNESS: PAIN THE PATIENT DESCRIBES THE PAIN... 64-YEAR-OLD FEMALE IN FOR POST TPI FOLLOW-UP SHE RATES HER PAIN PREPROCEDURE AT A 5 OUT OF 10 AND POSTPROCEDURE AT A 0 OUT OF 10 SHE RATES HER PAIN CURRENTLY AT A 2 OUT OF 10 AND DESCRIBES IT ACHING, AND SORE. SHE FEELS THE PROCEDURE WORKED WELL OVERALL. FALL RISK SCREENING: SCREENING :NO FALLS REPORTED IN THE LAST YEAR CURRENT MEDICATIONS TAKING ADVAIR DISKUS 250-50 MCG/DOSE AEROSOL POWDER BREATH ACTIVATED 1 PUFF INHALATION DAILY TAKING ALBUTEROL SULFATE HFA 108 (90 BASE) MCG/ACT AEROSOL SOLUTION 2 PUFFS NEEDED INHALATION EVERY 6 HRS TAKING MULTIVITAMINS OTC CAPSULE 1 TABLET ORALLY ONCE A DAY TAKING BENADRYL 25 MG CAPSULE 1 CAPSULE ORALLY TWICE A DAY NEEDED TAKING TYLENOL 325 MG TABLET 2 TABLETS NEEDED ORALLY EVERY 6 HRS TAKING ASPIRIN 81 MG TABLET CHEWABLE 1 TABLET ORALLY ONCE DAILY TAKING MAXALT 10 MG TABLET 1 TABLET NEEDED ONE TIME ORALLY ONCE A DAY TAKING EPIPEN 2-JAKE 0.3 MG/0.3ML (1:1000) DEVICE INJECTION INTRAMUSCULAR NEEDED TAKING DRISDOL 13354 UNIT CAPSULE 1 CAPSULE ORALLY ONCE WEEKLY TAKING GABAPENTIN 400 MG CAPSULE 1 CAPSULE ORALLY FOUR TIMES DAILY TAKING CYMBALTA 60 MG CAPSULE DELAYED RELEASE PARTICLES 1 CAPSULE ORALLY ONCE A DAY TAKING CYCLOBENZAPRINE HCL 10 MG TABLET 1 TABLET NEEDED ORALLY THREE TIMES A DAY TAKING SYNTHROID 175 MCG TABLET 1 TABLET ON AN EMPTY STOMACH IN THE MORNING ORALLY ONCE A DAY NOT-TAKING STRIVERDI RESPIMAT 2.5 MCG/ACT AEROSOL SOLUTION 2 PUFFS INHALATION ONCE A DAY NOT-TAKING VITAMIN D 2000 UNIT TABLET 1 CAPSULE ORALLY ONCE A DAY NOT-TAKING FLUTICASONE-SALMETEROL 250-50 MCG/DOSE AEROSOL POWDER BREATH ACTIVATED 1 PUFF INHALATION TWICE A DAY MEDICATION LIST REVIEWED AND RECONCILED WITH THE PATIENT PAST MEDICAL HISTORY DEPRESSION ANXIETY GERD HYPOTHYROID INSOMNIA L4 FX, MILD CENTRAL CANAL STENOSIS L4-5 SEIZURE DISORDER: EEG X 2 NML- NCN FOLLOWING MIGRANE WITH AURA 3 MM LEFT INTERNAL CAROTID ARTERY 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 LAN AT [facility] 02/23/16 COLONOSCOPY: SUBOPTIMAL PREP: REPEAT IN 2 YEARS 07/2016 EGD: [employer] NOTED: S/P DILATION: DR. LORENZO 07/2016 1978 FAMILY HISTORY FATHER: 76 YRS, END STAGE RENAL FAILURE, ALZHEIMERS, DIAGNOSED WITH DIABETES, UNSPECIFIED HEART DISEASE MOTHER: ALIVE 81 YRS, ESRD, HTN, HYPOTHYROIDISM, HYPERTENSION SIBLINGS: 2 SISTERS IN A FIRE, BROTHER HAD DIABETES, 1 SISTER OF COLON CA, DIABETES DAUGHTER(S): DGTR HAS HEART CONDITION 2 BROTHER(S) , 4 SISTER(S) . 1 SON(S) , 2 DAUGHTER(S) - HEALTHY. 1\\\/2 MATERNAL SISTER AT AGE 55 WITH STOMACH CANCER\\NPATERNAL AUNT : STOMACH CANCER\\N. SOCIAL HISTORY GENERAL: TOBACCO USE ARE YOU A:NONSMOKER HIV / HEP-C SCREENING HIV TEST OFFERED TO PATIENT:YES DATE OFFERED:12/04/2017 TEST ACCEPTED:NO HEP-C TEST OFFERED TO PATIENT:YES DATE OFFERED:12/04/2017 REASON:PATIENT DECLINED TEST ACCEPTED:NO REASON:PATIENT DECLINED BROCHURE PROVIDED TO PATIENTYES DECLINED WHEN OFFERED OTH[facility]. HOUSING: RENTS APARTMENT. 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 ADDITIONAL COLLEGE HOURS DIET: REGULAR. LANGUAGE LANGUAGES SPOKEN:[place]STA RICAN DOMESTIC VIOLENCE DO YOU FEEL SAFE IN YOUR ENVIRONMENT?YES BMI CARE GOAL FOLLOW-UP ABOVE NORMAL BMI FOLLOW-UPLIFESTYLE EDUCATION REGARDING DIET RECREATIONAL DRUG USE DENIES. EXERCISE: NO REGULAR EXERCISE. 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 PERSONNEL ASSISTANT NEEDED?NO PAIN CLINIC PFS, CLERGY, PUBLIC HEALTH REFERRALS HAS THE PATIENT BEEN EDUCATED REGARDING HIS/HER PLAN OF CARE?YES HAS THE PATIENT BEEN EDUCATED REGARDING PAIN, THE RISK FOR PAIN, THE IMPORTANCE OF EFFECTIVE PAIN MANAGEMENT, AND THE PAIN ASSESSMENT PROCESS?YES LATEX QUESTIONNAIRE LATEX ALLERGY : HAVE YOU EVER DEVELOPED ANY TYPE OF REACTION AFTER HANDLING LATEX PRODUCTS SUCH RUBBER GLOVES, CONDOMS, DIAPHRAGMS, BALLOONS, SOCKS, OR UNDERWEAR?YES HAND RASH LATEX ALLERGY : HAVE YOU EVER DEVELOPED ANY TYPE OF REACTION DURING OR AFTER DENTAL APPOINTMENT, VAGINAL/RECTAL EXAMINATION, SURGICAL PROCEDURE, OR ANY OTHER EXPOSURE?NO DATE ASKED : 07/19/2018 LATEX RISK : HAVE YOU EVER HAD ANY DIFFICULTY BREATHING OR HIVES AFTER EATING OR HANDLING ANY FRUITS, OR VEGETABLES; SUCH KIWI, BANANAS, STONE FRUITS, OR CHESTNUTSNO LATEX RISK : DO YOU HAVE A PREVIOUS PERSONAL HISTORY OF MORE THAN NINE SURGERIES, SPINA BIFIDA, OR REPEATED CATHERIZATIONS? NO LATEX RISK : ARE YOU FREQUENTLY EXPOSED TO LATEX PRODUCTS IN YOUR OCCUPATION?NO CAFFEINE CAFFEINE USE?YES OCCASIONAL SODA OR TEA ADVANCE DIRECTIVE ADVANCE DIRECTIVE DISCUSSED WITH PATIENT:YES STATES IS WORKING ON THIS, DECLINES INFORMATION OR ASSISTANCE AT THIS TIME HINDUISM [id number] ANABAPTISM MARITAL STATUS: .. ALCOHOL SCREENING POINTS: 1, INTERPRETATION: NEGATIVE. 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 SEXUAL HX HAD SEX IN THE LAST 12 MONTHS (VAGINAL, ORAL, OR ANAL)?YES WITHMEN ONLY USE PROTECTION?NO HAVE YOU EVER HAD AN STD?NO REVIEWED WITH PATIENT 05/02/2019 LAS. HOSPITALIZATION/MAJOR DIAGNOSTIC PROCEDURE SURGERY RELATED [facility] ER BACK PAIN 04/14/19 REVIEW OF SYSTEMS REVIEWED BY: PROVIDER: AKOSUA BRIGHT . CONSTITUTIONAL: ANY CHANGE IN YOUR MEDICAL CONDITION? NO . CHILLS NO . FEVER NO . INFECTION: DO YOU HAVE NEW INFECTIONS? NO . DO YOU HAVE HISTORY OF MRSA? NO . MUSCULOSKELETAL: ANY NEW PATTERNS OF PAIN OR NUMBNESS? NO . GASTROENTEROLOGY: ANY NEW CHANGE IN BOWEL CONTROL? NO . GENITOURINARY: ANY NEW CHANGE IN BLADDER CONTROL? NO . IS THERE A CHANCE YOU COULD BE ? NO . HEMATOLOGY/LYMPH: DO YOU TAKE ANY BLOOD THINNERS? (FOR EXAMPLE- COUMADIN, PLAVIX, AGGRENOX, PLATEL, PRADAXA, OR XARELTO) NO . WHEN WAS YOUR LAST DOSE? DATE: TIME: . NEUROLOGY: HAVE YOU FALLEN IN THE PAST 12 MONTHS? NO . ANY NEW EXTREMITY NUMBNESS OR WEAKNESS? NO . CARDIOLOGY: DO YOU HAVE A PACEMAKER OR DEFIBRILLATOR? NO . RESPIRATORY: HAVE YOU BEEN SICK IN THE PAST WEEK? NO . FEVER NO . FLU LIKE SYMPTOMS? NO . COUGH YES, NON-PRODUCTIVE . INTEGUMENTARY: DO YOU HAVE ANY RASHES OR OPEN SORES? YES, SCRAPE ON LEFT HAND . ALLERGIC/IMMUNO: ARE YOU ALLERGIC TO IV DYE? NO . ANY NEW ALLERGIES? NO . PSYCHIATRIC: DO YOU HAVE THOUGHTS OF HURTING YOURSELF OR SOMEONE ELSE? NO . ARE YOU ABUSED, NEGLECTED, OR IN AN UNSAFE ENVIRONMENT? NO . ENDOCRINOLOGY: ARE YOU DIABETIC? NO . OTHER: DO YOU NEED ANY PRESCRIPTIONS? NO . IF YES, PLEASE LIST: ____ . ANY NEW PROBLEMS WITH YOUR MEDICATIONS? NO . WHEN DID YOU LAST EAT? ____ . WHEN DID YOU LAST DRINK? ____ . WHAT DID YOU LAST DRINK? ____ . NAME OF PERSON DRIVING YOU HOME? ____ . DO YOU HAVE ANY OTHER QUESTIONS OR CONCERNS NO . VITAL SIGNS WT 189.2 LBS, HT 68 IN, BMI 28.76 INDEX, BP 139/79 MM HG, HR 70 /MIN, RR 18 /MIN, TEMP 97.8 F, OXYGEN SAT % 95%, NA INITIALS MS 1441, REVIEWED BY: EM. EXAMINATION GENERAL EXAMINATION: GENERALNO ACUTE DISTRESS, WELL NOURISHED AND HYDRATED. PSYCHAPPROPRIATE MOOD AND AFFECT . LUNGS:CLEAR TO AUSCULTATION BILATERALLY, NO WHEEZES, RHONCHI, RALES. HEART:NO MURMURS, REGULAR RATE AND RHYTHM. ASSESSMENTS MYALGIA, OTHER SITE - M79.18 (PRIMARY) TREATMENT MYALGIA, OTHER SITE CLINICAL NOTES: 64-YEAR-OLD FEMALE IN FOR POST TPI FOLLOW-UP. GIVEN PRESENTING SYMPTOMS AND RESULTS OF PHYSICAL EXAMINATION RECOMMENDED FOLLOW-UP IN 2 MONTHS. PATIENT HAS EXPRESSED UNDERSTANDING OF AND WAS IN AGREEMENT WITH TREATMENT PLAN. GIVEN TIME TO ASK QUESTIONS AND EXPRESS CONCERNS. PROCEDURE CODES FA211 ESTABILISHED PATIENT [facility] FACILITY CHARGE DISPOSITION & COMMUNICATION FOLLOW UP 2 MONTHS (REASON: BACK PAIN) ELECTRONICALLY SIGNED BY NICOLE ESPOSITO ON 07/07/2019 AT 11:01 AM EDT DISCLAIMER : THIS IS A VISIT SUMMARY EXTRACTED FROM THE [employer] CHART. IT IS NOT A COPY OF THE [employer] PROGRESS NOTE. DONAVAN
== END ==
LOC: M PAIN 14:30
PROVIDERS: ATTEND Family Medicine
DX: M79.18 Myalgia, other site (principal)

== ENCOUNTER → 2019-09-03 | Outpatient (CLI) | payer OTHER ==
[~2019-09-03] MED LIST changes: +CYCL-707 PO; -CYCL10TA PO
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
== END ==
LOC: M PAIN 11:15
PROVIDERS: ATTEND Family Medicine
DX: M51.16 Intervertebral disc disorders with radiculopathy, lumbar region (principal); E03.9 Hypothyroidism, unspecified; Z79.82 Long term (current) use of aspirin; Z79.899 Other long term (current) drug therapy; Z88.1 Allergy status to other antibiotic agents; Z88.8 Allergy status to other drugs, medicaments and biological substances; Z91.048 Other nonmedicinal substance allergy status

== ENCOUNTER 2019-09-24 14:09 | Emergency (ER) | payer OTHER ==
[~2019-09-24] VITALS: Ht 170.2 cm; Wt 87.3 kg
[2019-09-24] MEDS ORDERED: STRI1AER2 (14:27)
[2019-09-24] MEDS ORDERED: PANT20TA2 PO (14:29)
[2019-09-24] MEDS ORDERED: DULO1CAP6 PO (14:29)
[2019-09-24] MEDS ORDERED: predniSONE 20 MG TAB PO ONE (15:00)
[2019-09-24] MEDS ORDERED: ALBUTEROL 90 MCG/ACT 8GM HFA INHALER INH ONE (15:00)
--- NOTE | 2019-09-24 15:19 | REP ---
PORTABLE CHEST X-RAY: Single view. HISTORY: Short of breath and wheezing. COMPARISON CHEST X-RAY: August 07, 2018. FINDINGS: The patient is status post ventral discectomy and fusion plating in the cervical spine. The lungs are well inflated and free of infiltrate. The pleural angles are sharp. Cardiomediastinal silhouette is unremarkable. Pulmonary vasculature is not increased. IMPRESSION: No active disease. Electronically Signed by Butch Edward MD 09/24/2019 03:29 P
[2019-09-24] MEDS ORDERED: PRED20TA PO (16:51)
[2019-09-24 17:03] VITALS: BP 124/84
--- NOTE | 2019-09-24 17:52 | ECGEPIP ---
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 Order Number: [id number] Reading MD: Edmond Cardoza Measurements Intervals [place] Rate: 78 P: 15 CA: 162 QRS: -42 QRSD: 93 T: -5 QT: 381 QTc: 434 Interpretive Statements SINUS RHYTHM WITH SINUS ARRHYTHMIA LEFT AXIS DEVIATION SIMILAR TO 08/07/18 Electronically Signed on 09-24-2019 17:52:50 EDT by Edmond Cardoza
== END 2019-09-24 17:09 | disposition home or self-care (01) ==
LOC: M ED 14:09 → EDBD 14:09 → M ED 17:09
DX: J45.901 Unspecified asthma with (acute) exacerbation (principal); K21.9 Gastro-esophageal reflux disease without esophagitis; M25.511 Pain in right shoulder; Z88.2 Allergy status to sulfonamides; Z88.8 Allergy status to other drugs, medicaments and biological substances; Z91.048 Other nonmedicinal substance allergy status; Z79.899 Other long term (current) drug therapy

== ENCOUNTER 2019-11-18 16:17 | Emergency (ER) | payer OTHER ==
[~2019-11-18] VITALS: Ht 170.2 cm; Wt 88.8 kg
[~2019-11-18 16:17] MED LIST changes: +DULO1CAP6 PO; -PANT20TA2 PO; +PANT20TA6 PO; +PRED20TA PO; +STRI1AER2
[2019-11-18] MEDS ORDERED: SOMA350T PO (17:40)
[2019-11-18] MEDS ORDERED: LIDO5DIS41 TOP (17:40)
[2019-11-18 17:46] VITALS: BP 145/87
== END 2019-11-18 17:51 | disposition home or self-care (01) ==
LOC: M ED 16:17
DX: G89.29 Other chronic pain (principal); M54.6 Pain in thoracic spine; F41.9 Anxiety disorder, unspecified; F17.210 Nicotine dependence, cigarettes, uncomplicated; Z88.1 Allergy status to other antibiotic agents; Z88.2 Allergy status to sulfonamides; Z88.8 Allergy status to other drugs, medicaments and biological substances; Z91.048 Other nonmedicinal substance allergy status; Z79.51 Long term (current) use of inhaled steroids; Z79.899 Other long term (current) drug therapy

== ENCOUNTER 2020-07-20 18:53 | Emergency (ER) | payer OTHER ==
[~2020-07-20] VITALS: Ht 170.2 cm; Wt 86.4 kg
[~2020-07-20 18:53] MED LIST changes: +GABA-282 PO; -GABA-843 PO; +LIDO5DIS41 TOP; +SOMA350T PO
[2020-07-20 18:55] VITALS: BP 176/85
== END 2020-07-20 20:13 | disposition left against medical advice (07) ==
LOC: M ED 18:53
DX: Z53.21 Procedure and treatment not carried out due to patient leaving prior to being seen by health care provider (principal)

== ENCOUNTER 2020-07-23 13:27 | Emergency (ER) | payer OTHER ==
[~2020-07-23] VITALS: Ht 170.2 cm; Wt 77.3 kg
[2020-07-23 13:28] VITALS: BP 131/80
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
[2020-07-23] MEDS ORDERED: CYCL5TAB PO (15:13)
== END 2020-07-23 15:28 | disposition home or self-care (01) ==
LOC: M ED 13:27
DX: S13.4XXA Sprain of ligaments of cervical spine, initial encounter (principal); M54.5 Low back pain; V49.40XA Driver injured in collision with unspecified motor vehicles in traffic accident, initial encounter; M51.34 Other intervertebral disc degeneration, thoracic region; M43.24 Fusion of spine, thoracic region; M43.22 Fusion of spine, cervical region; M25.78 Osteophyte, vertebrae; M48.02 Spinal stenosis, cervical region; Z88.2 Allergy status to sulfonamides; Z88.8 Allergy status to other drugs, medicaments and biological substances; Z79.899 Other long term (current) drug therapy

== ENCOUNTER 2020-08-10 15:15 | Emergency (ER) | payer OTHER ==
[~2020-08-10] VITALS: Ht 170.2 cm; Wt 87.3 kg
[~2020-08-10 15:15] MED LIST changes: +CYCL5TAB PO
--- NOTE | 2020-08-10 15:44 | REP ---
INDICATION: CHEST PAIN. COMPARISON: 09/24/2019 TECHNIQUE: Portable FINDINGS: The technique utilized in obtaining the radiograph has magnified the cardiac silhouette and accentuated the interstitial markings. The superior mediastinal structures are midline. The cardiac silhouette is unremarkable in size, shape, and position. The diaphragmatic surfaces of the lungs are regular, and the costophrenic angles are clear. The pulmonary curry are clear. The imaged osseous structures are intact. IMPRESSION: There is no acute cardiopulmonary disease. <Electronically signed by Alex Pascual > 08/10/20 [id number]
[2020-08-10 16:05] LABS: BASO # 0.1 10^3/uL (0.0-0.2); BASO % 0.6 % (0.0-1.0); EOS # 0.7 10^3/uL (0.0-0.5); HEMATOCRIT 43.7 % (36.0-47.0); LYMPH # 3.4 10^3/uL (1.5-5.0); MEAN CORPUSCULAR HEMOGLOBIN 30.4 pg (27.0-33.0); MEAN CORPUSCULAR VOLUME 94.8 fl (80.0-96.0); MONO # 0.8 10^3/uL (0.0-0.8); MONO % 8.4 % (2.0-8.0); NEUTROPHILS % 44.2 % (36.0-66.0); PLATELET COUNT, AUTOMATED 248 10^3/uL (150-450); RED BLOOD COUNT 4.61 10^6/uL (4.00-5.40)
[2020-08-10 16:38] LABS: ALBUMIN 3.5 GM/DL (3.2-5.2); ALT/SGPT 24 U/L (12-78); BILIRUBIN,DIRECT 0.1 MG/DL (0.0-0.2); BILIRUBIN,TOTAL 0.3 MG/DL (0.2-1.0); BLOOD UREA NITROGEN 14 MG/DL (7-18); CALCIUM LEVEL 9.3 MG/DL (8.8-10.2); CARBON DIOXIDE LEVEL 29 MEQ/L (21-32); CHLORIDE LEVEL 106 MEQ/L (98-107); GLOMERULAR FILTRATION RATE > 60.0 (>45); GLUCOSE, FASTING 83 MG/DL (70-100); LIPASE 219 U/L (73-393); NT-PRO BNP 127 PG/ML (<125); POTASSIUM SERUM 4.3 MEQ/L (3.5-5.1); SODIUM LEVEL 142 MEQ/L (136-145); THYROID STIMULATING HORMONE 0.364 uIU/ML (0.358-3.740)
[2020-08-10] MEDS ORDERED: ISOVUE-370 76% 100ML VIAL As Ordered ONE (17:32)
[2020-08-10 17:51] LABS: CK-MB VALUE MASS 1.2 NG/ML (<3.6); CPK CREATINE PHOSPHOKINASE 68 U/L (26-192); MB/CK RELATIVE INDEX 1.76 (< OR =4); TROPONIN I < 0.02 NG/ML (< 0.10)
--- NOTE | 2020-08-10 18:28 | REPVR ---
PROCEDURE INFORMATION: Exam: CT Head Without Contrast Exam date and time: 08/10/2020 6:03 PM Age: 65 years old Clinical indication: Dizziness; Additional info: Vertigo TECHNIQUE: Imaging protocol: Computed tomography of the head without contrast. Radiation optimization: All CT scans at this facility use at least one of these dose optimization techniques: automated exposure control; mA and/or kV adjustment per patient size (includes targeted exams where dose is matched to clinical indication); or iterative reconstruction. COMPARISON: CT Head without contrast 07/23/2020 2:02 PM FINDINGS: Brain: Normal. No hemorrhage. Unremarkable white matter. No mass effect. Cerebral ventricles: No ventriculomegaly. Bones/joints: Unremarkable. No acute fracture. Paranasal sinuses: Visualized sinuses are unremarkable. No fluid levels. Mastoid air cells: Visualized mastoid air cells are well aerated. Soft tissues: Unremarkable. IMPRESSION: No acute intracranial abnormality. Electronically signed by: Roland Smith On 08/10/2020 18:28:42 PM
--- NOTE | 2020-08-10 18:32 | REPVR ---
PROCEDURE INFORMATION: Exam: CT Angiography Neck With Contrast Exam date and time: 08/10/2020 6:03 PM Age: 65 years old Clinical indication: Dizziness and giddiness; Additional info: Chest pain TECHNIQUE: Imaging protocol: Computed tomography angiography of the neck with contrast. 3D rendering (Not supervised by radiologist): MIP and/or 3D reconstructed images were created by the technologist. Radiation optimization: All CT scans at this facility use at least one of these dose optimization techniques: automated exposure control; mA and/or kV adjustment per patient size (includes targeted exams where dose is matched to clinical indication); or iterative reconstruction. Contrast material: ISOVUE 370; Contrast volume: 75 ml; Contrast route: INTRAVENOUS (IV); COMPARISON: No relevant prior studies available. FINDINGS: Right common carotid artery: No stenosis. No dissection or occlusion. Right internal carotid artery: No stenosis of the extracranial segment. No dissection or occlusion. Right external carotid artery: No occlusion or stenosis of the origin. Right vertebral artery: No stenosis. No dissection or occlusion. Left common carotid artery: No stenosis. No dissection or occlusion. Left internal carotid artery: No stenosis of the extracranial segment. No dissection or occlusion. Left external carotid artery: No occlusion or stenosis of the origin. Left vertebral artery: No stenosis. No dissection or occlusion. Bones/joints: No acute fracture. Soft tissues: Normal. No significant soft tissue swelling. IMPRESSION: No stenosis or occlusion. REFERENCES: NASCET CRITERIA. The degree of internal carotid artery stenosis is based on NASCET criteria. Normal is no stenosis. Mild is less than 50% stenosis. Moderate is 50-69% stenosis. Severe is 70% to 99% stenosis. Total occlusion is no detectable patent lumen. Electronically signed by: Roland Smith On 08/10/2020 18:32:36 PM
--- NOTE | 2020-08-10 18:36 | REPVR ---
PROCEDURE INFORMATION: Exam: CTA Chest With Contrast Exam date and time: 08/10/2020 6:03 PM Age: 65 years old Clinical indication: Chest pain TECHNIQUE: Imaging protocol: Computed tomographic angiography of the chest with contrast. 3D rendering (Not supervised by radiologist): MIP and/or 3D reconstructed images were created by the technologist. Radiation optimization: All CT scans at this facility use at least one of these dose optimization techniques: automated exposure control; mA and/or kV adjustment per patient size (includes targeted exams where dose is matched to clinical indication); or iterative reconstruction. Contrast material: ISOVUE 370; Contrast volume: 75 ml; Contrast route: INTRAVENOUS (IV); COMPARISON: [place] PORTABLE CHEST X-RAY 08/10/2020 3:34 PM FINDINGS: Pulmonary arteries: Contrast density within the pulmonary arteries is insufficient in order to exclude the presence of small peripheral pulmonary emboli. That said, there are no large or medium-sized vessel emboli visualized. Aorta: There is fusiform dilatation of the ascending thoracic aorta which measures 3.7 cm. maximally. There is no dissection or saccular component. Lungs: Unremarkable. No consolidation. No masses. Pleural spaces: Unremarkable. No pneumothorax. No pleural effusion. Heart: Unremarkable. No cardiomegaly. No pericardial effusion. Lymph nodes: Unremarkable. No enlarged lymph nodes. Bones/joints: Unremarkable. No acute fracture. Soft tissues: Unremarkable. IMPRESSION: 1. There is fusiform dilatation of the ascending thoracic aorta which measures 3.7 cm. maximally. There is no dissection or saccular component. 2. Contrast density within the pulmonary arteries is insufficient in order to exclude the presence of small peripheral pulmonary emboli. That said, there are no large or medium-sized vessel emboli visualized. 3. No acute pulmonary parenchymal abnormalities. Electronically signed by: Roland Smith On 08/10/2020 18:36:41 PM
[2020-08-10 21:26] LABS: CPK CREATINE PHOSPHOKINASE 66 U/L (26-192); MB/CK RELATIVE INDEX 1.52 (< OR =4); TROPONIN I < 0.02 NG/ML (< 0.10)
[2020-08-10 21:44] VITALS: BP 131/71
--- NOTE | 2020-08-11 07:59 | ECGEPIP ---
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
--- NOTE | 2020-08-11 08:04 | ECGEPIP ---
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
== END 2020-08-10 21:54 | disposition home or self-care (01) ==
LOC: M ED 15:15 → EDBD 15:15 → M ED 21:54
DX: R07.9 Chest pain, unspecified (principal); I71.2 Thoracic aortic aneurysm, without rupture; K21.9 Gastro-esophageal reflux disease without esophagitis; Z88.1 Allergy status to other antibiotic agents; Z88.2 Allergy status to sulfonamides; Z88.8 Allergy status to other drugs, medicaments and biological substances; Z91.09 Other allergy status, other than to drugs and biological substances
CPT/HCPCS: 36415; 70450; 70498; 71045; 71275; 80048; 80076; 82550; 82553; 83690; 83880; 84443; 85025; 93005; 93041; 94760; 99285; Q9967

== ENCOUNTER → 2020-11-01 | Outpatient (CLI) | payer OTHER ==
[~2020-11-01] MED LIST changes: +BISO5TAB14 PO; +ERGO500029 PO; +FAMO40TA3 PO; +GABA-283 PO; -GABA-845 PO; +IBUP80TA PO; +LORA-243 PO; +VITMTA PO
== END ==
LOC: M LABSMTC 09:10
PROVIDERS: ATTEND Anesthesiology
DX: Z01.818 Encounter for other preprocedural examination (principal); Z11.52 Encounter for screening for COVID-19

== ENCOUNTER 2020-11-05 10:21 | Day surgery (SDC) | payer OTHER ==
[~2020-11-05 10:21] MED LIST changes: +NS 1,000 ML IV ONE
[2020-11-05] MEDS ORDERED: LIDOCAINE 2% 100MG/5ML SDV (FOR ANES.) As Ordered ONE (10:37)
[2020-11-05] MEDS ORDERED: propofoL 200 MG/20 ML VIAL As Ordered ONE ×2 (10:37→11:03)
--- NOTE | 2020-11-05 11:17 | ROOR ---
Patient Name: Daylin Germain Procedure Date: 11/05/2020 10:52 AM Date of : 1955 Age: 65 Room: [facility] Gender: Female Note Status: Finalized Procedure: Colonoscopy Indications: High risk colon cancer surveillance: Personal history of colonic polyps, Family history of colon cancer in a first-degree relative before age 60 years Providers: Dante Perez MD Referring MD: Giuliana Nina NP Requesting Provider: Medicines: Monitored Anesthesia Care Complications: No immediate complications. Procedure: Pre-Anesthesia Assessment: - The heart rate, respiratory rate, oxygen saturations, blood pressure, adequacy of pulmonary ventilation, and response to care were monitored throughout the procedure. The Colonoscope was introduced through the anus and advanced to the terminal ileum, with identification of the appendiceal orifice and IC valve. The colonoscopy was performed without difficulty. The patient tolerated the procedure well. The quality of the bowel preparation was adequate. Findings: The perianal and digital rectal examinations were normal. Diverticula were found in the sigmoid colon. Small Internal Hemorrhoids. The exam was otherwise without abnormality on direct and retroflexion views. Impression: - Diverticulosis in the sigmoid colon. - Small Internal Hemorrhoids. - The examination was otherwise normal on direct and retroflexion views. - No specimens collected. Recommendation: - Repeat colonoscopy in 5 years for screening purposes. Procedure Code(s): --- Professional --- 53584, Colonoscopy, flexible; diagnostic, including collection of specimen(s) by brushing or washing, when performed (separate procedure) Diagnosis Code(s): --- Professional --- K57.30, Diverticulosis of large intestine without perforation or abscess without bleeding Z80.0, Family history of malignant neoplasm of digestive organs Z86.010, Personal history of colonic polyps CPT copyright 2019 [employer]. All rights reserved. The codes documented in this report are preliminary and upon reliability manager review may be revised to meet current compliance requirements. Dante Perez MD Dante Perez MD 11/05/2020 11:16:57 AM Electronically signed by Dante Perez MD Number of Addenda: 0 Note Initiated On: 11/05/2020 10:52 AM Estimated Blood Loss: Estimated blood loss: none.
[2020-11-05 11:38] VITALS: BP 143/87
== END 2020-11-05 11:43 | disposition home or self-care (01) ==
LOC: M OPP 10:21
PROVIDERS: ATTEND Internal Medicine Gastroenterology
DX: Z12.11 Encounter for screening for malignant neoplasm of colon (principal); Z86.010 Personal history of colon polyps; Z80.0 Family history of malignant neoplasm of digestive organs; K57.30 Diverticulosis of large intestine without perforation or abscess without bleeding; K64.8 Other hemorrhoids; Z79.899 Other long term (current) drug therapy; Z88.1 Allergy status to other antibiotic agents; Z88.2 Allergy status to sulfonamides; Z88.8 Allergy status to other drugs, medicaments and biological substances

== ENCOUNTER → 2021-01-10 | Outpatient (CLI) | payer OTHER ==
[~2021-01-10] MED LIST changes: -NS 1,000 ML IV ONE
== END ==
LOC: M LABSMTC 10:42
PROVIDERS: ATTEND Pediatrics
DX: Z20.822 Contact with and (suspected) exposure to COVID-19 (principal)

== ENCOUNTER 2021-06-08 21:20 | Emergency (ER) | payer OTHER ==
[~2021-06-08] VITALS: Ht 170.2 cm; Wt 86.4 kg
[2021-06-08] MEDS ORDERED: NS 1,000 ML IV ONE (22:25)
[2021-06-08] MEDS ORDERED: ONDANSETRON 4MG/2ML VIAL As Ordered ONE (22:50)
[2021-06-08] MEDS ORDERED: ONDANSETRON 4MG/2ML VIAL IV ONE (22:55)
[2021-06-08 22:56] LABS: BASO % 0.3 % (0.0-1.0); EOS # 0.4 10^3/uL (0.0-0.5); EOS % 2.6 % (0.0-3.0); HEMATOCRIT 45.1 % (36.0-47.0); LYMPH % 28.6 % (24.0-44.0); MEAN CORPUSCULAR HEMOGLOBIN 31.1 pg (27.0-33.0); MEAN CORPUSCULAR HGB CONC 33.3 g/dl (32.0-36.5); MEAN CORPUSCULAR VOLUME 93.4 fl (80.0-96.0); MONO # 1.2 10^3/uL (0.0-0.8); MONO % 8.2 % (2.0-8.0); NEUTROPHILS # 8.4 10^3/uL (1.5-8.5); NEUTROPHILS % 59.9 % (36.0-66.0); PLATELET COUNT, AUTOMATED 274 10^3/uL (150-450); RED BLOOD COUNT 4.83 10^6/uL (4.00-5.40)
[2021-06-08] MEDS ORDERED: KETOROLAC 30 MG/ML 1ML VIAL IV ONE (23:00)
[2021-06-08 23:14] LABS: BLOOD UREA NITROGEN 15 MG/DL (7-18); CREATININE FOR GFR 1.23 MG/DL (0.55-1.30); GLOMERULAR FILTRATION RATE 46.6 (>45); GLUCOSE, FASTING 132 MG/DL (70-100)
[2021-06-08 23:15] LABS: ALBUMIN 3.6 GM/DL (3.2-5.2); ALT/SGPT 27 U/L (12-78); BILIRUBIN,DIRECT < 0.1 MG/DL (0.0-0.2); BILIRUBIN,TOTAL 0.4 MG/DL (0.2-1.0); CALCIUM LEVEL 9.6 MG/DL (8.8-10.2); CARBON DIOXIDE LEVEL 22 MEQ/L (21-32); CHLORIDE LEVEL 109 MEQ/L (98-107); LIPASE 73 U/L (73-393); POTASSIUM SERUM 4.1 MEQ/L (3.5-5.1); SODIUM LEVEL 140 MEQ/L (136-145); TOTAL PROTEIN 6.9 GM/DL (6.4-8.2)
[2021-06-09] MEDS ORDERED: MORPHINE 4 MG/ML 1ML VIAL/SYRINGE (J2270) IV ONE (00:05)
[2021-06-09] MEDS ORDERED: TRAM50TA2 PO (01:16)
[2021-06-09] MEDS ORDERED: FLOM0.4C39 PO (01:16)
[2021-06-09] MEDS ORDERED: TAMSULOSIN 0.4 MG CAP PO ONE (01:25)
[2021-06-09] MEDS ORDERED: traMADol 50 MG TAB PO ONE (02:00)
[2021-06-09] MEDS ORDERED: traMADol 50 MG TAB (BULK 4 TAB ED) PO ONE (02:00)
[2021-06-09 02:15] VITALS: BP 139/75
== END 2021-06-09 02:30 | disposition home or self-care (01) ==
LOC: M ED 21:20
DX: N20.0 Calculus of kidney (principal); N13.30 Unspecified hydronephrosis; I10 Essential (primary) hypertension; K21.9 Gastro-esophageal reflux disease without esophagitis; E03.9 Hypothyroidism, unspecified; F41.9 Anxiety disorder, unspecified; Z88.2 Allergy status to sulfonamides; Z91.030 Bee allergy status; Z91.048 Other nonmedicinal substance allergy status
CPT/HCPCS: 74176; 80048; 80076; 81001; 83690; 85025; 93041; 96361; 96374; 96375; 99285; J1885; J2270; J2405

== ENCOUNTER → 2021-07-25 | Outpatient (CLI) | payer MEDICARE, MEDICAID ==
[~2021-07-25] MED LIST changes: +FLOM0.4C39 PO; +TRAM50TA2 PO
[2021-07-25 15:50] LABS: GLOMERULAR FILTRATION RATE 59.2 (>45)
== END ==
LOC: M PLALAB 13:48
PROVIDERS: ATTEND Internal Medicine
DX: R42 Dizziness and giddiness (principal)

== ENCOUNTER 2021-08-19 14:24 | Emergency (ER) | payer MEDICARE, OTHER ==
[~2021-08-19] VITALS: Ht 170.2 cm; Wt 87.3 kg
[2021-08-19 15:03] LABS: BASO # 0.1 10^3/uL (0.0-0.2); BASO % 0.6 % (0.0-1.0); EOS # 0.6 10^3/uL (0.0-0.5); EOS % 7.4 % (0.0-3.0); HEMATOCRIT 42.8 % (36.0-47.0); HEMOGLOBIN 14.1 g/dl (12.0-15.5); LYMPH # 3.3 10^3/uL (1.5-5.0); LYMPH % 39.8 % (24.0-44.0); MEAN CORPUSCULAR HEMOGLOBIN 31.3 pg (27.0-33.0); MEAN CORPUSCULAR HGB CONC 32.9 g/dl (32.0-36.5); MEAN CORPUSCULAR VOLUME 95.1 fl (80.0-96.0); MONO # 0.8 10^3/uL (0.0-0.8); MONO % 9.3 % (2.0-8.0); NEUTROPHILS # 3.5 10^3/uL (1.5-8.5); NEUTROPHILS % 42.4 % (36.0-66.0); PLATELET COUNT, AUTOMATED 235 10^3/uL (150-450); WHITE BLOOD COUNT 8.2 10^3/uL (4.0-10.0)
[2021-08-19 15:35] LABS: CK-MB VALUE MASS 1.3 NG/ML (<3.6); MB/CK RELATIVE INDEX 1.46 (< OR =4)
[2021-08-19 15:42] LABS: ALBUMIN 3.5 GM/DL (3.2-5.2); ALT/SGPT 28 U/L (12-78); BILIRUBIN,DIRECT < 0.1 MG/DL (0.0-0.2); BILIRUBIN,TOTAL 0.2 MG/DL (0.2-1.0); BLOOD UREA NITROGEN 17 MG/DL (7-18); CALCIUM LEVEL 9.4 MG/DL (8.8-10.2); CARBON DIOXIDE LEVEL 26 MEQ/L (21-32); CHLORIDE LEVEL 109 MEQ/L (98-107); CREATININE FOR GFR 0.98 MG/DL (0.55-1.30); GLOMERULAR FILTRATION RATE > 60.0 (>45); GLUCOSE, FASTING 96 MG/DL (70-100); LIPASE 191 U/L (73-393); NT-PRO BNP 214 PG/ML (<125); POTASSIUM SERUM 4.5 MEQ/L (3.5-5.1); SODIUM LEVEL 142 MEQ/L (136-145); TOTAL PROTEIN 6.8 GM/DL (6.4-8.2)
[2021-08-19 16:40] LABS: MB/CK RELATIVE INDEX 1.25 (< OR =4)
[2021-08-19 18:25] VITALS: BP 156/92
[2021-08-19 18:56] LABS: MB/CK RELATIVE INDEX 1.52 (< OR =4)
== END 2021-08-19 19:51 | disposition home or self-care (01) ==
LOC: M ED 14:24 → EDBD 14:24 → M ED 19:51
DX: R07.9 Chest pain, unspecified (principal); R94.31 Abnormal electrocardiogram [ECG] [EKG]; I10 Essential (primary) hypertension; J45.909 Unspecified asthma, uncomplicated; K21.9 Gastro-esophageal reflux disease without esophagitis; F41.8 Other specified anxiety disorders; F32.A Depression, unspecified; Z88.2 Allergy status to sulfonamides; Z91.048 Other nonmedicinal substance allergy status; Z88.8 Allergy status to other drugs, medicaments and biological substances; Z79.899 Other long term (current) drug therapy

== ENCOUNTER 2023-05-04 13:56 | Emergency (ER) | payer MEDICARE, OTHER ==
[~2023-05-04] VITALS: Ht 172.7 cm; Wt 89.1 kg
[~2023-05-04 13:56] MED LIST changes: -GABA-283 PO; +GABA-284 PO
[2023-05-04 13:57] VITALS: BP 124/73; O2SAT 92
[2023-05-04 15:25] LABS: RSV AMPLIFICATION NEGATIVE (NEGATIVE)
[2023-05-04] MEDS ORDERED: IBUPROFEN 600MG TAB PO ONE (19:20)
[2023-05-04 21:14] VITALS: TEMP 98
[2023-05-04] MEDS ORDERED: OSEL75CA PO (21:46)
[2023-05-04] MEDS ORDERED: ALBU6.7H6 INH (21:46)
== END 2023-05-04 21:52 | disposition home or self-care (01) ==
LOC: M ED 13:56
DX: J09.X2 Influenza due to identified novel influenza A virus with other respiratory manifestations (principal); I10 Essential (primary) hypertension; G43.909 Migraine, unspecified, not intractable, without status migrainosus; K21.9 Gastro-esophageal reflux disease without esophagitis; E03.9 Hypothyroidism, unspecified; J45.909 Unspecified asthma, uncomplicated; Z88.1 Allergy status to other antibiotic agents; Z88.2 Allergy status to sulfonamides; Z88.8 Allergy status to other drugs, medicaments and biological substances; Z91.048 Other nonmedicinal substance allergy status; Z79.52 Long term (current) use of systemic steroids; Z79.891 Long term (current) use of opiate analgesic; Z79.899 Other long term (current) drug therapy

== ENCOUNTER 2024-04-07 09:44 | Emergency (ER) | payer MEDICARE ==
[~2024-04-07] VITALS: Ht 170.2 cm; Wt 87.7 kg
[~2024-04-07 09:44] MED LIST changes: +ALBU6.7H6 INH; -CYCL5TAB PO; +CYCL5TAB4 PO; +GABA-1172 PO; -GABA-282 PO; +ONDA-282 PO; -ONDA4TAB6 PO; +OSEL75CA PO
[2024-04-07 14:01] VITALS: BP 128/84; TEMP 97.7; O2SAT 99
[2024-04-07] MEDS: KETOROLAC 60MG 2ML VIAL IM ONE (14:54)
== END 2024-04-07 15:20 | disposition home or self-care (01) ==
LOC: M ED 09:44
DX: S70.01XA Contusion of right hip, initial encounter (principal); M25.561 Pain in right knee; W00.0XXA Fall on same level due to ice and snow, initial encounter; J45.909 Unspecified asthma, uncomplicated; E03.9 Hypothyroidism, unspecified; I10 Essential (primary) hypertension; Y92.009 Unspecified place in unspecified non-institutional (private) residence as the place of occurrence of the external cause; Y93.89 Activity, other specified; Y99.9 Unspecified external cause status; Z88.2 Allergy status to sulfonamides; Z88.1 Allergy status to other antibiotic agents; Z88.8 Allergy status to other drugs, medicaments and biological substances; Z91.048 Other nonmedicinal substance allergy status; Z79.52 Long term (current) use of systemic steroids; Z79.2 Long term (current) use of antibiotics; Z79.1 Long term (current) use of non-steroidal anti-inflammatories (NSAID); Z79.899 Other long term (current) drug therapy
CPT/HCPCS: 72110; 73502; 73564; 96372; 99284; J1885

== ENCOUNTER 2024-06-17 11:34 | Emergency (ER) | payer MEDICARE ==
[~2024-06-17] VITALS: Ht 170.2 cm; Wt 49.8 kg
[2024-06-17 19:42] LABS: APPEARANCE, URINE HAZY (CLEAR); BACTERIA, URINE AUTO NEGATIVE (NEGATIVE); BILIRUBIN, URINE AUTO NEGATIVE (NEGATIVE); BLOOD, URINE BLOOD NEGATIVE (NEGATIVE); COLOR, URINE YELLOW (YELLOW); GLUCOSE, URINE (UA) AUTO NEGATIVE (NEGATIVE); KETONE, URINE AUTO NEGATIVE (NEGATIVE); LEUKOCYTE ESTERASE, URINE AUTO TRACE (NEGATIVE); MUCUS, URINE SMALL (NEGATIVE); NITRITE, URINE AUTO NEGATIVE (NEGATIVE); PROTEIN, URINE AUTO NEGATIVE (NEGATIVE); RBC, URINE AUTO 1 /HPF (0-3); SPECIFIC GRAVITY URINE AUTO 1.019 (1.002-1.035); SQUAMOUS EPITHELIAL CELL UR AU 4 /HPF (0-6); UROBILINOGEN, URINE AUTO 0.2 mg/dL (0.0-2.0); WBC, URINE AUTO 4 /HPF (0-3)
[2024-06-17] MEDS ORDERED: SYNT25TA PO (20:13)
[2024-06-17] MEDS ORDERED: LEVO2TA PO (20:13)
[2024-06-17] MEDS ORDERED: CYCL5TAB4 PO (20:13)
[2024-06-17] MEDS: CYCLOBENZAPRINE 5MG TABLET PO ONE (20:21)
[2024-06-17 20:23] VITALS: BP 153/80; TEMP 96.2; O2SAT 97
== END 2024-06-17 20:34 | disposition home or self-care (01) ==
LOC: EDBD 11:34 → M ED 11:34
DX: N39.3 Stress incontinence (female) (male) (principal); E03.9 Hypothyroidism, unspecified; Z76.0 Encounter for issue of repeat prescription; Z79.899 Other long term (current) drug therapy; Z91.030 Bee allergy status; Z88.2 Allergy status to sulfonamides; Z91.89 Other specified personal risk factors, not elsewhere classified; Z88.8 Allergy status to other drugs, medicaments and biological substances

== ENCOUNTER 2024-12-19 11:51 | Emergency (ER) | payer MEDICARE, MEDICAID ==
[~2024-12-19] VITALS: Ht 170.2 cm; Wt 87.3 kg
[~2024-12-19 11:51] MED LIST changes: -FLOM0.4C39 PO; +LEVO2TA PO; +LIDO1ADH93 TOP; -LIDO5DIS41 TOP; -RA T500C2 PO; +SYNT25TA PO; +TAMS-18 PO; +TURM500C10 PO
[2024-12-19] MEDS ORDERED: EPIP0.3I2 IM (13:15)
[2024-12-19 13:43] VITALS: BP 130/72; TEMP 98.3; O2SAT 96
== END 2024-12-19 13:47 | disposition home or self-care (01) ==
LOC: M ED 11:51 → EDBD 11:51 → M ED 13:47
DX: T63.461A Toxic effect of venom of wasps, accidental (unintentional), initial encounter (principal); Z91.030 Bee allergy status; I10 Essential (primary) hypertension; K21.9 Gastro-esophageal reflux disease without esophagitis; F17.200 Nicotine dependence, unspecified, uncomplicated; Z88.2 Allergy status to sulfonamides; Z88.8 Allergy status to other drugs, medicaments and biological substances; Z91.048 Other nonmedicinal substance allergy status

== ENCOUNTER → 2025-02-23 | Outpatient (REF) | payer MEDICARE, MEDICAID, OTHER ==
[~2025-02-23] MED LIST changes: +EPIP0.3I2 IM
[2025-02-23 18:06] LABS: ALT/SGPT 28.0 U/L (7.0-40); AST/SGOT 25.0 U/L (<34); CALCIUM LEVEL 10.0 MG/DL (8.3-10.6); CARBON DIOXIDE LEVEL 28.0 MMOL/L (20-31); CHLORIDE LEVEL 106.0 MMOL/L (98-107); CHOLESTEROL LEVEL 199.0 MG/DL (<200); CHOLESTEROL RISK RATIO 4.21 (<5); CREATININE FOR GFR 0.95 MG/DL (0.55-1.30); GLOMERULAR FILTRATION RATE 65.3 (>45); LDL CHOLESTEROL 127.4 MG/DL (<100); NON-HDL-C 151.8 MG/DL; POTASSIUM SERUM 5.2 MMOL/L (3.5-5.1); SODIUM LEVEL 142.0 MMOL/L (136-145); TRIGLYCERIDES LEVEL 122.0 MG/DL (<150)
== END ==
LOC: M LAB REF 16:29
PROVIDERS: ATTEND Family Medicine Addiction Medicine
DX: E03.9 Hypothyroidism, unspecified (principal)

== ENCOUNTER → 2025-02-27 | Outpatient (REF) | payer MEDICARE, MEDICAID, OTHER ==
[2025-02-27 17:10] LABS: CALCIUM LEVEL 9.3 MG/DL (8.3-10.6); CARBON DIOXIDE LEVEL 26.0 MMOL/L (20-31); CHLORIDE LEVEL 106.0 MMOL/L (98-107); CREATININE FOR GFR 1.03 MG/DL (0.55-1.30); GLOMERULAR FILTRATION RATE 59.2 (>45); POTASSIUM SERUM 4.6 MMOL/L (3.5-5.1); SODIUM LEVEL 140.0 MMOL/L (136-145)
== END ==
LOC: M LAB REF 16:14
PROVIDERS: ATTEND Family Medicine Addiction Medicine
DX: E87.5 Hyperkalemia (principal)